=== PATIENT | female | born 1985 | race Caucasian/White ===

== ENCOUNTER 2017-11-21 05:33 | Inpatient (IN) | payer MEDICAID ==
[~2017-11-21] VITALS: Ht 165.1 cm; Wt 107.7 kg
[2017-11-21] VITALS (11 sets, daily range): BP systolic 106–148; BP diastolic 60–84; PULSE 82–100; RESP 16–20; TEMP 98.1–99.1; O2SAT 94–98
--- NOTE | 2017-11-21 06:14 | PD ---
HPI Chief Complaint: GI Complaint Time Seen by Provider: 06:04 Travel History International Travel<30 days: No Contact w/Intl Traveler<30days: No Traveled to known affect area: No History of Present Illness HPI The patient is a 32-year-old female who complains of nausea, vomiting and midline epigastric pain for 10 hours. She denies any diarrhea. She denies any alcohol recently and denies taking any aspirin or nonsteroidal anti- inflammatory medications. She had a colonoscopy recently which was normal. She does not have any local physicians, she lives in [place]. She does not have any history of pancreatitis. She states they're planning to do an upper endoscopy in [place] because of her recurrent abdominal pains. She states there is no possibility of being . Apparently, the patient had sludge in her gallbladder on previous ultrasound. This happened approximately one month ago. PFSH Past Medical History Patient Takes Glucophage: No Gastrointestinal Disorders: Yes (Colonoscopy 11/16/2017) Influenza Vaccination: No ?: Not LMP: Now Past Surgical History Section: Yes Social History Alcohol Use: No Tobacco Use: No Substance Use: No Allergies-Medications (Allergen,Severity, Reaction): Coded Allergies: Penicillins (Verified Allergy, Unknown, Rash, 11/21/17) montelukast (Verified Allergy, Unknown, Bad dreams, 11/21/17) Reported Meds & Prescriptions Reported Meds & Active Scripts Active Reported Ibuprofen 200 Mg Tab 200 Mg PO Q4H PRN Review of Systems Except as stated in HPI: all other systems reviewed are Neg Physical Exam Narrative GENERAL: The patient is alert, oriented 3 in moderate apparent distress with her midline epigastric discomfort. Her vital signs are normal. SKIN: Focused skin assessment warm/dry. HEAD: Atraumatic. Normocephalic. EYES: Pupils equal and round. No scleral icterus. No injection or drainage. ENT: No nasal bleeding or discharge. Mucous membranes pink and moist. NECK: Trachea midline. No JVD. CARDIOVASCULAR: Regular rate and rhythm. No murmur appreciated. RESPIRATORY: No accessory muscle use. Clear to auscultation. Breath sounds equal bilaterally. GASTROINTESTINAL: Abdomen soft, with tenderness to direct palpation in the midline epigastrium, nondistended. Hepatic and splenic margins not palpable. No guarding or rebound is present. MUSCULOSKELETAL: No obvious deformities. No clubbing. No cyanosis. No edema. NEUROLOGICAL: Awake and alert. No obvious cranial nerve deficits. Motor grossly within normal limits. Normal speech. PSYCHIATRIC: Appropriate mood and affect; insight and judgment normal. Data Data Last Documented VS Vital Signs Date Time Temp Pulse Resp B/P (MAP) Pulse Ox O2 Delivery O2 Flow Rate FiO2 11/21/17 07:03 16 11/21/17 07:02 97 Room Air 11/21/17 07:00 82 11/21/17 05:48 98.4 Orders Orders Beta Hcg (Quant/Titer) (11/21/17 06:16) Complete Blood Count With Diff (11/21/17 06:16) Comprehensive Metabolic Panel (11/21/17 06:16) Lipase (11/21/17 06:16) Urinalysis - C+S If Indicated (11/21/17 06:16) Iv Access Insert/Monitor (11/21/17 06:16) Ecg Monitoring (11/21/17 06:16) Oximetry (11/21/17 06:16) Ondansetron Inj (Zofran Inj) (11/21/17 06:30) Sodium Chlor 0.9% 1000 Ml Inj (Ns 1000 M (11/21/17 06:16) Sodium Chloride 0.9% Flush (Ns Flush) (11/21/17 06:30) Hydromorphone Pf Inj (Dilaudid Pf Inj) (11/21/17 06:45) Pantoprazole Inj (Protonix Inj) (11/21/17 06:45) Sodium Chlor 0.9% 1000 Ml Inj (Ns 1000 M (11/21/17 06:37) Famotidine Inj (Pepcid Inj) (11/21/17 06:45) Urine Culture (11/21/17 06:15) Ct Abd/Pel W Iv Contrast(Rout) (11/21/17 07:19) Labs Laboratory Tests Test 11/21/17 06:15 White Blood Count 10.0 TH/MM3 Red Blood Count 4.85 MIL/MM3 Hemoglobin 13.3 GM/DL Hematocrit 41.0 % Mean Corpuscular Volume 84.5 FL Mean Corpuscular Hemoglobin 27.4 PG Mean Corpuscular Hemoglobin Concent 32.4 % Red Cell Distribution Width 13.0 % Platelet Count 268 TH/MM3 Mean Platelet Volume 8.2 FL Neutrophils (%) (Auto) 87.4 % Lymphocytes (%) (Auto) 7.2 % Monocytes (%) (Auto) 4.7 % Eosinophils (%) (Auto) 0.4 % Basophils (%) (Auto) 0.3 % Neutrophils # (Auto) 8.8 TH/MM3 Lymphocytes # (Auto) 0.7 TH/MM3 Monocytes # (Auto) 0.5 TH/MM3 Eosinophils # (Auto) 0.0 TH/MM3 Basophils # (Auto) 0.0 TH/MM3 CBC Comment DIFF FINAL Differential Comment Urine Collection Type CLEAN CATCH Urine Color YELLOW Urine Turbidity MOD Urine pH 5.0 Urine Specific [place] 1.026 Urine Protein 30 mg/dL Urine Glucose (UA) NEG mg/dL Urine Ketones NEG mg/dL Urine Occult Blood LARGE Urine Nitrite NEG Urine Bilirubin MOD Urine Leukocyte Esterase NEG Urine RBC 50-99 /hpf Urine WBC 9-14 /hpf Urine Squamous Epithelial Cells 6-8 /hpf Urine Calcium Oxalate Crystals MOD /hpf Urine Amorphous Sediment FEW Urine Bacteria FEW /hpf Microscopic Urinalysis Comment CULTURE INDICATED Urine Collection Time 06:15 Blood Urea Nitrogen 11 MG/DL Creatinine 0.75 MG/DL Random Glucose 153 MG/DL Total Protein 7.7 GM/DL Albumin 3.5 GM/DL Calcium Level 8.2 MG/DL Alkaline Phosphatase 235 U/L Aspartate Amino Transf (AST/SGOT) 306 U/L Alanine Aminotransferase (ALT/SGPT) 632 U/L Total Bilirubin 2.1 MG/DL Sodium Level 137 MEQ/L Potassium Level 3.9 MEQ/L Chloride Level 104 MEQ/L Carbon Dioxide Level 26.2 MEQ/L Anion Gap 7 MEQ/L Estimat Glomerular Filtration Rate 89 ML/MIN Lipase GREATER THAN 04599 U/L Human Chorionic Gonadotropin, Quant LESS THAN 1 MIU/ML MDM Medical Decision Making Medical Screen Exam Complete: Yes Emergency Medical Condition: Yes Medical Record Reviewed: Yes Interpretation(s) The CBC shows 87% neutrophils but is otherwise normal. The complete metabolic profile shows a glucose of 153, calcium 8.2, total bilirubin of 2.1 with AST of 306, ALT of 632, alkaline phosphatase of 235 but is otherwise normal. The beta- hCG is less than 1. The lipase is greater than 30,000. The urine shows specific gravity 1.0-6, moderate turbidity with large occult blood, moderate bilirubin with 50-99 red cells and 9-14 white cells and moderate calcium oxalate crystals and culture is indicated. Differential Diagnosis Gastritis, pancreatitis, colitis, ulcer pain, dehydration, electrolyte disorder Narrative Course The blood and urine may be explained by the fact that the patient is on her period. The elevation of the liver enzymes and dramatic elevation of the lipase indicate possible gallstone pancreatitis area it could also be viral pancreatitis. We're doing a CT abdomen/pelvis at this time. The patient will be admitted to the [facility] service. It is now 0735 and the patient will have a CT abdomen/pelvis to help determine if this is a ductal obstruction problem orifices viral pancreatitis. The patient does have severe pancreatitis. She is dehydrated. It is now 736 and the patient is transferred to Dr. Hdz. Diagnosis Primary Impression: Pancreatitis due to biliary obstruction Deion Veliz MD Nov 21, 2017 06:13
[2017-11-21] MEDS ORDERED: SODIUM CHLOR 0.9% 1000 ML INJ 1,000 ML IV SCH ×2 (06:16→06:37)
[2017-11-21] MEDS ORDERED: ONDANSETRON HCL 4 MG/2 ML VIAL IVP ONE (06:30)
[2017-11-21] MEDS ORDERED: SODIUM CHLORIDE 0.9% FLUSH 10 ML FLUSH IV FLUSH PRN ×2 (06:30→09:00)
[2017-11-21 06:34] LABS: BILIRUBIN, URINE MOD (NEG); BLOOD, URINE LARGE (NEG); GLUCOSE,URINE NEG (NEG); KETONE, URINE NEG (NEG); NITRITE,URINE NEG (NEG); URINE LEUKOCYTE ESTERASE NEG (NEG)
[2017-11-21 06:36] LABS: AUTOMATED NEUTROPHIL # 8.8 TH/MM3 (1.8-7.7); BASOPHIL % 0.3 % (0.0-2.0); EOSINOPHIL % 0.4 % (0.0-4.0); HEMOGLOBIN 13.3 GM/DL (11.6-15.3); LYMPH % 7.2 % (9.0-44.0); LYMPHOCYTE # 0.7 TH/MM3 (1.0-4.8); MEAN CELL VOLUME 84.5 FL (80.0-100.0); MEAN CORPUSCULAR HEMOGLOBIN 27.4 PG (27.0-34.0); MEAN CORPUSCULAR HGB CONC 32.4 % (32.0-36.0); MEAN PLATELET VOLUME 8.2 FL (7.0-11.0); MONO % 4.7 % (0.0-8.0); MONOCYTE # 0.5 TH/MM3 (0-0.9); NEUT % 87.4 % (16.0-70.0); PLATELET COUNT 268 TH/MM3 (150-450); RED BLOOD COUNT 4.85 MIL/MM3 (4.00-5.30)
[2017-11-21 06:41] LABS: CHLORIDE 104 MEQ/L (98-107); SODIUM (NA) 137 MEQ/L (136-145)
[2017-11-21 06:45] LABS: ALBUMIN 3.5 GM/DL (3.4-5.0); BICARBONATE 26.2 MEQ/L (21.0-32.0); BLOOD UREA NITROGEN 11 MG/DL (7-18); CALCIUM 8.2 MG/DL (8.5-10.1); GLUCOSE,RANDOM 153 MG/DL (74-106); URINE COLOR YELLOW (YELLW/STRAW)
[2017-11-21] MEDS ORDERED: PANTOPRAZOLE SODIUM 40 MG VIAL IVP ONE (06:45)
[2017-11-21] MEDS ORDERED: HYDROmorphone HCL PF 2 MG/ML VIAL IVS ONE (06:45)
[2017-11-21] MEDS ORDERED: FAMOTIDINE 20 MG/2 ML VIAL IV PUSH ONE (06:45)
[2017-11-21 06:48] LABS: ALT (GPT) 632 U/L (10-53); AST (GOT) 306 U/L (15-37); CREATININE 0.75 MG/DL (0.50-1.00); GLOMERULAR FILTRATION RATE 89 ML/MIN (>89)
[2017-11-21 06:49] LABS: AMORPHOUS SEDIMENT, URINE FEW; BACTERIA, URINE FEW /hpf; CALCIUM OXALATE CRYSTALS,URINE MOD /hpf
[2017-11-21 06:50] LABS: TOTAL BILIRUBIN ADULT 2.1 MG/DL (0.2-1.0); TOTAL PROTEIN 7.7 GM/DL (6.4-8.2)
[2017-11-21 06:51] LABS: ALKALINE PHOSPHATASE 235 U/L (45-117)
[2017-11-21 06:59] LABS: LIPASE GREATER THAN 30000 U/L (73-393)
[2017-11-21] MEDS ORDERED: IBUP200T47 PO (07:34)
[2017-11-21] MEDS ORDERED: IOHEXOL 350 MG/ML 10 ML VIAL (for RAD DIAG) IVCONTRAST ONE (07:39)
--- NOTE | 2017-11-21 08:23 | RADRPT ---
EXAM DATE/TIME: 11/21/2017 07:30 [facility] COMPARISON: No previous studies available for comparison. INDICATIONS : Upper quadrant pain, with nausea and vomiting. IV CONTRAST: 95 cc Omnipaque 350 (iohexol) IV ORAL CONTRAST: No oral contrast ingested. RADIATION DOSE: 22.35 CTDIvol (mGy) MEDICAL HISTORY : None SURGICAL HISTORY : section. ENCOUNTER: Initial ACUITY: 1 day PAIN SCALE: 2/10 LOCATION: Bilateral upper quadrant TECHNIQUE: Volumetric scanning of the abdomen and pelvis was performed. Using automated exposure control and ad justment of the mA and/or kV according to patient size, radiation dose was kept as low as reasonably achievable to obtain optimal diagnostic quality images. DICOM format image data is available electro nically for review and comparison. FINDINGS: LOWER LUNGS: The visualized lower lungs are clear. LIVER: Diffuse moderate intrahepatic biliary ductal dilatation. Common duct measures 11 mm in diameter diffu sely. Multiple gallstones are seen in the gallbladder. There are also two 5 mm calcific densities in the region of the distal common duct indicating possible choledocholithiasis. No pericholecystic inf lammatory changes. No focal masses in the liver. SPLEEN: Normal size without lesion. PANCREAS: Within normal limits. KIDNEYS: Normal in size and shape. There is no mass, stone or hydronephrosis. ADRENAL GLANDS: Within normal limits. VASCULAR: There is no aortic aneurysm. BOWEL/MESENTERY: No evidence of bowel dilatation. No free air or free fluid. Appendix within normal limits. ABDOMINAL WALL: Within normal limits. RETROPERITONEUM: There is no lymphadenopathy. BLADDER: No wall thickening or mass. REPRODUCTIVE: Calcifi 3.8 cm fibroid extending superiorly off of the uterine fundus. 4.5 x 3.0 cm right adnexal cys tic mass. INGUINAL: There is no lymphadenopathy or hernia. MUSCULOSKELETAL: Within normal limits for patient age. CONCLUSION: 1. Diffuse intrahepatic and extra hepatic biliary ductal dilatation. Cholelithiasis. Calcific densiti es in the region of the distal common duct suggesting choledocholithiasis. No pericholecystic inflamm atory changes. 2. Calcified uterine fibroid. 3. 4.5 cm oval cystic area in the right adnexa likely representing an ovarian cyst. Jak Rae MD on November 21, 2017 at 8:14 Board Certified Radiologist. This report was verified electronically.
[2017-11-21] MEDS ORDERED: HYDROmorphone HCL PF 1 MG/ML VIAL IV PUSH ONE (08:30)
[2017-11-21] MEDS ORDERED: HYDROmorphone HCL PF 2 MG/ML VIAL IV PUSH ONE (08:30)
[2017-11-21] MEDS ORDERED: ONDANSETRON HCL 4 MG/2 ML VIAL IV PUSH ONE (08:45)
--- NOTE | 2017-11-21 08:56 | PD ---
Physical Exam Date Seen by Provider: Nov 21, 2017 Time Seen by Provider: 07:00 Narrative Patient initially seen by Dr. Veliz, signed out to me at 7 AM pending CAT scan. Patient has acute pancreatitis and hepatic enzyme elevations, concerning for underlying cholecystitis or other gallbladder processes. Laboratory Tests Test 11/21/17 06:15 Neutrophils (%) (Auto) 87.4 % (16.0-70.0) Lymphocytes (%) (Auto) 7.2 % (9.0-44.0) Neutrophils # (Auto) 8.8 TH/MM3 (1.8-7.7) Lymphocytes # (Auto) 0.7 TH/MM3 (1.0-4.8) Urine Turbidity MOD (CLEAR) Urine Protein 30 mg/dL (NEG-TRACE) Urine Occult Blood LARGE (NEG) Urine Bilirubin MOD (NEG) Urine RBC 50-99 /hpf (0-3) Urine WBC 9-14 /hpf (0-5) Urine Squamous Epithelial Cells 6-8 /hpf (0-5) Urine Calcium Oxalate Crystals MOD /hpf (NONE) Urine Bacteria FEW /hpf (NONE) Random Glucose 153 MG/DL (74-106) Calcium Level 8.2 MG/DL (8.5-10.1) Alkaline Phosphatase 235 U/L (45-117) Aspartate Amino Transf (AST/SGOT) 306 U/L (15-37) Alanine Aminotransferase (ALT/SGPT) 632 U/L (10-53) Total Bilirubin 2.1 MG/DL (0.2-1.0) Lipase GREATER THAN 80103 U/L Last 24 hours Impressions Abdomen/Pelvis CT 11/21/17 0719 Signed Impressions: Service Date/Time: Tuesday, November 21, 2017 07:30 - CONCLUSION: 1. Diffuse intrahepatic and extra hepatic biliary ductal dilatation. Cholelithiasis. Calcific densities in the region of the distal common duct suggesting choledocholithiasis. No pericholecystic inflammatory changes. 2. Calcified uterine fibroid. 3. 4.5 cm oval cystic area in the right adnexa likely representing an ovarian cyst. Jak Rae MD CAT scan does not show any signs of acute cholecystitis but does show biliary outflow obstruction. Case was discussed with Dr. Mckeon for admission. Case was then discussed with Dr. Roman of GI and she would like the patient to be transferred to the main hospital, patient will need an ERCP which needs to be done there. Planning to admit to the [facility]. Data Data Last Documented VS Vital Signs Date Time Temp Pulse Resp B/P (MAP) Pulse Ox O2 Delivery O2 Flow Rate FiO2 11/21/17 08:09 100 18 106/60 (75) 98 Room Air 11/21/17 05:48 98.4 Orders Orders Beta Hcg (Quant/Titer) (11/21/17 06:16) Complete Blood Count With Diff (11/21/17 06:16) Comprehensive Metabolic Panel (11/21/17 06:16) Lipase (11/21/17 06:16) Urinalysis - C+S If Indicated (11/21/17 06:16) Iv Access Insert/Monitor (11/21/17 06:16) Ecg Monitoring (11/21/17 06:16) Oximetry (11/21/17 06:16) Ondansetron Inj (Zofran Inj) (11/21/17 06:30) Sodium Chlor 0.9% 1000 Ml Inj (Ns 1000 M (11/21/17 06:16) Sodium Chloride 0.9% Flush (Ns Flush) (11/21/17 06:30) Hydromorphone Pf Inj (Dilaudid Pf Inj) (11/21/17 06:45) Pantoprazole Inj (Protonix Inj) (11/21/17 06:45) Sodium Chlor 0.9% 1000 Ml Inj (Ns 1000 M (11/21/17 06:37) Famotidine Inj (Pepcid Inj) (11/21/17 06:45) Urine Culture (11/21/17 06:15) Ct Abd/Pel W Iv Contrast(Rout) (11/21/17 07:19) Iohexol 350 Inj (Omnipaque 350 Inj) (11/21/17 07:39) Hydromorphone Pf Inj (Dilaudid Pf Inj) (11/21/17 08:30) Hydromorphone Pf Inj (Dilaudid Pf Inj) (11/21/17 08:30) Ondansetron Inj (Zofran Inj) (11/21/17 08:45) Admit Order (Ed Use Only) (11/21/17 08:53) Labs Laboratory Tests Test 1/14/18 06:15 White Blood Count 10.0 TH/MM3 Red Blood Count 4.85 MIL/MM3 Hemoglobin 13.3 GM/DL Hematocrit 41.0 % Mean Corpuscular Volume 84.5 FL Mean Corpuscular Hemoglobin 27.4 PG Mean Corpuscular Hemoglobin Concent 32.4 % Red Cell Distribution Width 13.0 % Platelet Count 268 TH/MM3 Mean Platelet Volume 8.2 FL Neutrophils (%) (Auto) 87.4 % Lymphocytes (%) (Auto) 7.2 % Monocytes (%) (Auto) 4.7 % Eosinophils (%) (Auto) 0.4 % Basophils (%) (Auto) 0.3 % Neutrophils # (Auto) 8.8 TH/MM3 Lymphocytes # (Auto) 0.7 TH/MM3 Monocytes # (Auto) 0.5 TH/MM3 Eosinophils # (Auto) 0.0 TH/MM3 Basophils # (Auto) 0.0 TH/MM3 CBC Comment DIFF FINAL Differential Comment Urine Collection Type CLEAN CATCH Urine Color YELLOW Urine Turbidity MOD Urine pH 5.0 Urine Specific [place] 1.026 Urine Protein 30 mg/dL Urine Glucose (UA) NEG mg/dL Urine Ketones NEG mg/dL Urine Occult Blood LARGE Urine Nitrite NEG Urine Bilirubin MOD Urine Leukocyte Esterase NEG Urine RBC 50-99 /hpf Urine WBC 9-14 /hpf Urine Squamous Epithelial Cells 6-8 /hpf Urine Calcium Oxalate Crystals MOD /hpf Urine Amorphous Sediment FEW Urine Bacteria FEW /hpf Microscopic Urinalysis Comment CULTURE INDICATED Urine Collection Time 06:15 Blood Urea Nitrogen 11 MG/DL Creatinine 0.75 MG/DL Random Glucose 153 MG/DL Total Protein 7.7 GM/DL Albumin 3.5 GM/DL Calcium Level 8.2 MG/DL Alkaline Phosphatase 235 U/L Aspartate Amino Transf (AST/SGOT) 306 U/L Alanine Aminotransferase (ALT/SGPT) 632 U/L Total Bilirubin 2.1 MG/DL Sodium Level 137 MEQ/L Potassium Level 3.9 MEQ/L Chloride Level 104 MEQ/L Carbon Dioxide Level 26.2 MEQ/L Anion Gap 7 MEQ/L Estimat Glomerular Filtration Rate 89 ML/MIN Lipase GREATER THAN 62930 U/L Human Chorionic Gonadotropin, Quant LESS THAN 1 MIU/ML MDM Medical Record Reviewed: Yes Supervised Visit with ALEN: No Diagnosis Primary Impression: Pancreatitis due to biliary obstruction Admitting Information Admitting Physician Requests: Admit Dieudonne Ley MD Nov 21, 2017 08:56
[2017-11-21] MEDS ORDERED: LACTATED RINGER'S 1000 ML INJ 1,000 ML IV SCH (08:58)
[2017-11-21] MEDS ORDERED: DOCUSATE SODIUM 50 MG/SENNA 8.6 MG TAB PO PRN (09:00)
[2017-11-21] MEDS: SODIUM CHLORIDE 0.9% FLUSH 10 ML FLUSH IV FLUSH SCH ×2 (09:00→21:00)
[2017-11-21] MEDS ORDERED: MORPHINE SULFATE 2 MG/ML INJ IV PUSH PRN ×2 (09:15→13:15)
[2017-11-21] MEDS ORDERED: PROPOFOL 200 MG/20 ML AMP IV ONE (12:00)
[2017-11-21] MEDS ORDERED: LIDOCAINE HCL 1% PF 5 ML SYRINGE OTHER ONE (12:00)
[2017-11-21] MEDS ORDERED: SUCCINYLCHOLINE CHLORIDE 200 MG/10 ML VIAL IV ONE (12:00)
[2017-11-21] MEDS ORDERED: KETOROLAC TROMETHAMINE 60 MG/2 ML (IM) VIAL IM PRN (12:00)
--- NOTE | 2017-11-21 12:11 | HHI.HP ---
[facility] Primary [facility] Physician No Primary Care Physician Admission Diagnosis Choledocholithiasis/acute pancreatitis Diagnoses: Chief Complaint: abdominal pain Travel History International Travel<30 Days: No Contact w/Intl Traveler <30 Da: No Traveled to Known Affected Are: No History of Present Illness Patient is a 32-year-old female with minimal past history who has about 6 months of intermittent abdominal pain and associated nausea. She denies alcohol. She does have a previous diagnosis of biliary sludge and had been in the process of getting this evaluated in [place]. She was recommended for cholecystectomy but declined this in the couple of his hospital for nausea and vomiting with abdominal discomfort. The pain in her abdomen is severe and improved with minimal no improvement with Dilaudid or morphine. The patient has elevated LFTs and on imaging there is dilation her biliary ducts of likely obstruction. Patient will need to be admitted to the hospital for pain control and for definitive treatment of her biliary disease. Review of Systems Constitutional: DENIES: Diaphoretic episodes, Fatigue, Fever, Weight gain, Weight loss, Chills, Dizziness, Change in appetite, Night Sweats Endocrine: DENIES: Abnorml menstrual pattern, Heat/cold intolerance, Polydipsia , Polyuria, Polyphagia Eyes: DENIES: Blurred vision, Diplopia, Eye inflammation, Eye pain, Vision loss , Photosensitivity, Double Vision Ears, nose, mouth, throat: DENIES: Tinnitus, Hearing loss, Vertigo, Nasal discharge, Oral lesions, Throat pain, Hoarseness, Ear Pain, Running Nose, Epistaxis, Sinus Pain, Toothache, Odynophagia Respiratory: DENIES: Apneas, Cough, Snoring, Wheezing, Hemoptysis, Sputum production, Shortness of breath Cardiovascular: DENIES: Chest pain, Palpitations, Syncope, Dyspnea on Exertion , PND, Lower Extremity Edema, Orthopnea, Claudication Gastrointestinal: COMPLAINS OF: Abdominal pain, Nausea, Vomiting, DENIES: Black stools, Bloody stools, Constipation, Diarrhea, Difficulty Swallowing, Anorexia Genitourinary: DENIES: Abnormal vaginal bleeding, Dysmenorrhea, Dyspareunia, Sexual dysfunction, Urinary frequency, Urinary incontinence, Urgency, Hematuria , Dysuria, Nocturia, Vaginal discharge Musculoskeletal: DENIES: Joint pain, Muscle aches, Stiffness, Joint Swelling, Back pain, Neck pain Integumentary: DENIES: Abnormal pigmentation, Pruritus, Rash, Nail changes, Breast masses, Breast skin changes, Nipple discharge Hematologic/lymphatic: DENIES: Bruising, Lymphadenopathy Immunologic/allergic: DENIES: Eczema, Urticaria Neurologic: DENIES: Abnormal gait, Headache, Localized weakness, Paresthesias, Seizures, Speech Problems, Tremor, Poor Balance Psychiatric: DENIES: Anxiety, Confusion, Mood changes, Depression, Hallucinations, Agitation, Suicidal Ideation, Homicidal Ideation, Delusions Except as stated in HPI: all other systems reviewed are Neg Past Family Social History Past Medical History Denies Past Surgical History Reported Medications Reviewed in the EMR, only ibuprofen [id number] Allergies: Coded Allergies: Penicillins (Verified Allergy, Unknown, Rash, 11/21/17) montelukast (Verified Allergy, Unknown, Bad dreams, 11/21/17) Active Ordered Medications Reviewed in the EMR Family History Hypertension Social History Tobacco or alcohol dependency Physical Exam Vital Signs Vital Signs Date Time Temp Pulse Resp B/P (MAP) Pulse Ox O2 Delivery O2 Flow Rate FiO2 11/21/17 10:54 98.1 88 20 148/82 (104) 98 Room Air 11/21/17 09:03 18 11/21/17 08:09 100 18 106/60 (75) 98 Room Air 11/21/17 07:03 16 11/21/17 07:02 97 Room Air 11/21/17 07:00 82 16 119/79 (92) 98 Room Air 11/21/17 05:58 20 11/21/17 05:48 98.4 97 20 139/62 (87) 97 11/21/17 05:43 98.4 97 20 139/62 (87) 97 Physical Exam GENERAL: This is a well-nourished, well-developed patient, in no apparent distress. SKIN: No rashes, ecchymoses or lesions. Cool and dry. HEAD: Atraumatic. Normocephalic. No temporal or scalp tenderness. EYES: Pupils equal round and reactive. Extraocular motions intact. No scleral icterus. No injection or drainage. ENT: Nose without bleeding, purulent drainage or septal hematoma. Throat without erythema, tonsillar hypertrophy or exudate. Uvula midline. Airway patent. NECK: Trachea midline. No JVD or lymphadenopathy. Supple, nontender, no meningeal signs. CARDIOVASCULAR: Regular rate and rhythm without murmurs, gallops, or rubs. RESPIRATORY: Clear to auscultation. Breath sounds equal bilaterally. No wheezes , rales, or rhonchi. GASTROINTESTINAL: dry mucous membrane. Abdomen soft, non-tender, nondistended. No hepato-splenomegaly, or palpable masses. No guarding. MUSCULOSKELETAL: Extremities without clubbing, cyanosis, or edema. No joint tenderness, effusion, or edema noted. No calf tenderness. Negative Homans sign bilaterally. NEUROLOGICAL: Awake and alert. Cranial nerves II through XII intact. Motor and sensory grossly within normal limits. Five out of 5 muscle strength in all muscle groups. Normal speech. Laboratory Laboratory Tests Test 11/21/17 06:15 White Blood Count 10.0 Red Blood Count 4.85 Hemoglobin 13.3 Hematocrit 41.0 Mean Corpuscular Volume 84.5 Mean Corpuscular Hemoglobin 27.4 Mean Corpuscular Hemoglobin Concent 32.4 Red Cell Distribution Width 13.0 Platelet Count 268 Mean Platelet Volume 8.2 Neutrophils (%) (Auto) 87.4 Lymphocytes (%) (Auto) 7.2 Monocytes (%) (Auto) 4.7 Eosinophils (%) (Auto) 0.4 Basophils (%) (Auto) 0.3 Neutrophils # (Auto) 8.8 Lymphocytes # (Auto) 0.7 Monocytes # (Auto) 0.5 Eosinophils # (Auto) 0.0 Basophils # (Auto) 0.0 CBC Comment DIFF FINAL Differential Comment Urine Collection Type CLEAN CATCH Urine Color YELLOW Urine Turbidity MOD Urine pH 5.0 Urine Specific [place] 1.026 Urine Protein 30 Urine Glucose (UA) NEG Urine Ketones NEG Urine Occult Blood LARGE Urine Nitrite NEG Urine Bilirubin MOD Urine Leukocyte Esterase NEG Urine RBC 50-99 Urine WBC 9-14 Urine Squamous Epithelial Cells 6-8 Urine Calcium Oxalate Crystals MOD Urine Amorphous Sediment FEW Urine Bacteria FEW Microscopic Urinalysis Comment CULTURE INDICATED Urine Collection Time 06:15 Blood Urea Nitrogen 11 Creatinine 0.75 Random Glucose 153 Total Protein 7.7 Albumin 3.5 Calcium Level 8.2 Alkaline Phosphatase 235 Aspartate Amino Transf (AST/SGOT) 306 Alanine Aminotransferase (ALT/SGPT) 632 Total Bilirubin 2.1 Sodium Level 137 Potassium Level 3.9 Chloride Level 104 Carbon Dioxide Level 26.2 Anion Gap 7 Estimat Glomerular Filtration Rate 89 Lipase GREATER THAN 57365 Human Chorionic Gonadotropin, Quant LESS THAN 1 Date/Time Source Procedure Growth Status 11/21/17 06:15 Urine Clean Catch Urine Culture Pending Received Result Diagram: 11/21/17 0615 11/21/17 0615 Imaging Last Impressions Abdomen/Pelvis CT 11/21/17 0719 Signed Impressions: Service Date/Time: Tuesday, November 21, 2017 07:30 - CONCLUSION: 1. Diffuse intrahepatic and extra hepatic biliary ductal dilatation. Cholelithiasis. Calcific densities in the region of the distal common duct suggesting choledocholithiasis. No pericholecystic inflammatory changes. 2. Calcified uterine fibroid. 3. 4.5 cm oval cystic area in the right adnexa likely representing an ovarian cyst. Jak Rae MD Septic Shock Reassessment Septic shock perfusion: reassessment completed Caprini VTE Risk Assessment Caprini VTE Risk Assessment: Mod/High Risk (score >= 2) Caprini Risk Assessment Model Point Value = 1 Point Value = 2 Point Value = 3 Point Value = 5 Age 41-60 Minor surgery BMI > 25 kg/m2 Swollen legs Varicose veins or History of unexplained or recurrent spontaneous Oral contraceptives or hormone replacement Sepsis (< 1 month) Serious lung disease, including pneumonia (< 1 month) Abnormal pulmonary function Acute myocardial infarction Congestive heart failure (< 1 month) History of inflammatory bowel disease Medical patient at bed rest Age 61-74 Arthroscopic surgery Major open surgery (> 45 min) Laparoscopic surgery (> 45 min) Malignancy Confined to bed (> 72 hours) Immobilizing plaster cast Central venous access Age >= 75 History of VTE Family history of VTE Factor V Leiden Prothrombin [id number] Lupus anticoagulant Anticardiolipin antibodies Elevated serum homocysteine Heparin-induced thrombocytopenia Other congenital or acquired thrombophilia Stroke (< 1 month) Elective arthroplasty Hip, pelvis, or leg fracture Acute spinal cord injury (< 1 month) Prophylaxis Regimen Total Risk Factor Score Risk Level Prophylaxis Regimen 0-1 Low Early ambulation 2 Moderate Order ONE of the following: *Sequential Compression Device (SCD) *Heparin 5000 units SQ BID 3-4 Higher Order ONE of the following medications: *Heparin 5000 units SQ TID *Enoxaparin/Lovenox 40 mg SQ daily (WT < 150 kg, CrCl > 30 mL/min) *Enoxaparin/Lovenox 30 mg SQ daily (WT < 150 kg, CrCl > 10-29 mL/min) *Enoxaparin/Lovenox 30 mg SQ BID (WT < 150 kg, CrCl > 30 mL/min) AND/OR *Sequential Compression Device (SCD) 5 or more Highest Order ONE of the following medications: *Heparin 5000 units SQ TID (Preferred with Epidurals) *Enoxaparin/Lovenox 40 mg SQ daily (WT < 150 kg, CrCl > 30 mL/min) *Enoxaparin/Lovenox 30 mg SQ daily (WT < 150 kg, CrCl > 10-29 mL/min) *Enoxaparin/Lovenox 30 mg SQ BID (WT < 150 kg, CrCl > 30 mL/min) AND *Sequential Compression Device (SCD) Assessment and Plan Problem List: (1) Pancreatitis due to biliary obstruction ICD Code: K85.90 - Acute pancreatitis without necrosis or infection, unspecified; K83.1 - Obstruction of bile duct Status: Acute Plan: Patient will need further evaluation due to a history of gallstones in the past. At least since May this has been a problem and it appears to be escalating to the point of intervention required. Patient will see Gen. surgery as well as gastroenterology for possible ERCP and laparoscopic cholecystectomy if possible Physician Certification 2 Midnight Certification Type: Admission for Inpatient Services Order for Inpatient Services The services are ordered in accordance with Medicare regulations or non- Medicare payer requirements, as applicable. In the case of services not specified as inpatient-only, they are appropriately provided as inpatient services in accordance with the 2-midnight benchmark. Estimated LOS (days): 3 3 days is the estimated time the patient will need to remain in the hospital, assuming treatment plan goals are met and no additional complications. Post-Hospital Plan: Home Verenice Mckeon MD Nov 21, 2017 12:11
[2017-11-21] MEDS: ONDANSETRON HCL 4 MG/2 ML VIAL IV PUSH PRN ×2 (15:08→21:13)
--- NOTE | 2017-11-21 15:59 | PD.CONS ---
HPI History of Present Illness This is a 32 year old F with no significant medical problems. Pt presented to [facility] emergency department today with complaints of abdominal pain and nausea, symptoms have been intermittent for the past six months, constant since 9pm last night. Recently evaluated in [place] last week where she lives, currently here on vacation. Last week she had imaging done to evaluate her gallbladder and was told it was normal. However, she does report history of biliary sludge and elected out of cholecystectomy in the past. Also reports approx 10 pound weight loss but states she has been trying to eat less due to chronic abdominal pain. Also has issues with chronic constipation, was prescribed a medication for this by GI alst week but never had a chance to fill it. Pt also had a colonoscopy three days ago, states normal exam. Has never had EGD. LFTs in ER are as follows: AST-306 ALT-632 Alk phos-235 T bili-2.1 Lipase- greater than [address]. CT abdomen and pelvis W IV contrast (11/21) --> Diffuse intrahepatic and extra hepatic biliary ductal dialtion. Cholelithiasis. Calcified densities in the region of the distal common duct suggesting choledocholithiasis. No pericholecystic inflammatory changes. Calcified uterine fibroid. 4.5cm oval cystic area in the right adnexa likely representing an ovarian cyst. Pt denies ETOH, smoking, illicit drug use, NSAID use, any new medications. Denies history of abdominal surgeries. PFSH Past Medical History Denies Past Surgical History Coded Allergies: Penicillins (Verified Allergy, Unknown, Rash, 11/21/17) montelukast (Verified Allergy, Unknown, Bad dreams, 11/21/17) Family History Hypertension Social History Denies ETOH Denies smoking Denies illicit drug use Review of Systems Gastrointestinal: COMPLAINS OF: Abdominal pain, Constipation, Nausea, Vomiting , DENIES: Black stools, Bloody stools, Diarrhea, Difficulty Swallowing, Odynophagia, Swelling of Abdomen, Heartburn, Hematemesis GI Exam Vitals I&O Vital Signs Date Time Temp Pulse Resp B/P (MAP) Pulse Ox O2 Delivery O2 Flow Rate FiO2 11/21/17 14:11 103 18 133/75 (94) 97 11/21/17 12:16 98 18 135/84 (101) 98 Room Air 11/21/17 10:54 98.1 88 20 148/82 (104) 98 Room Air 11/21/17 09:03 18 11/21/17 08:09 100 18 106/60 (75) 98 Room Air 11/21/17 07:03 16 11/21/17 07:02 97 Room Air 11/21/17 07:00 82 16 119/79 (92) 98 Room Air 11/21/17 05:58 20 11/21/17 05:48 98.4 97 20 139/62 (87) 97 11/21/17 05:43 98.4 97 20 139/62 (87) 97 I/O 11/20/17 11/20/17 11/20/17 11/21/17 11/21/17 11/21/17 07:00 15:00 23:00 07:00 15:00 23:00 Intake Total 2000 ml Balance 2000 ml Intake IV Total 2000 ml # Voids 1 Imaging Last Impressions Abdomen/Pelvis CT 11/21/17 0719 Signed Impressions: Service Date/Time: Tuesday, November 21, 2017 07:30 - CONCLUSION: 1. Diffuse intrahepatic and extra hepatic biliary ductal dilatation. Cholelithiasis. Calcific densities in the region of the distal common duct suggesting choledocholithiasis. No pericholecystic inflammatory changes. 2. Calcified uterine fibroid. 3. 4.5 cm oval cystic area in the right adnexa likely representing an ovarian cyst. Jak Rae MD Laboratory Test 11/21/17 06:15 White Blood Count 10.0 TH/MM3 Red Blood Count 4.85 MIL/MM3 Hemoglobin 13.3 GM/DL Hematocrit 41.0 % Mean Corpuscular Volume 84.5 FL Mean Corpuscular Hemoglobin 27.4 PG Mean Corpuscular Hemoglobin Concent 32.4 % Red Cell Distribution Width 13.0 % Platelet Count 268 TH/MM3 Mean Platelet Volume 8.2 FL Neutrophils (%) (Auto) 87.4 % Lymphocytes (%) (Auto) 7.2 % Monocytes (%) (Auto) 4.7 % Eosinophils (%) (Auto) 0.4 % Basophils (%) (Auto) 0.3 % Neutrophils # (Auto) 8.8 TH/MM3 Lymphocytes # (Auto) 0.7 TH/MM3 Monocytes # (Auto) 0.5 TH/MM3 Eosinophils # (Auto) 0.0 TH/MM3 Basophils # (Auto) 0.0 TH/MM3 CBC Comment DIFF FINAL Differential Comment Urine Collection Type CLEAN CATCH Urine Color YELLOW Urine Turbidity MOD Urine pH 5.0 Urine Specific [place] 1.026 Urine Protein 30 mg/dL Urine Glucose (UA) NEG mg/dL Urine Ketones NEG mg/dL Urine Occult Blood LARGE Urine Nitrite NEG Urine Bilirubin MOD Urine Leukocyte Esterase NEG Urine RBC 50-99 /hpf Urine WBC 9-14 /hpf Urine Squamous Epithelial Cells 6-8 /hpf Urine Calcium Oxalate Crystals MOD /hpf Urine Amorphous Sediment FEW Urine Bacteria FEW /hpf Microscopic Urinalysis Comment CULTURE INDICATED Urine Collection Time 06:15 Blood Urea Nitrogen 11 MG/DL Creatinine 0.75 MG/DL Random Glucose 153 MG/DL Total Protein 7.7 GM/DL Albumin 3.5 GM/DL Calcium Level 8.2 MG/DL Alkaline Phosphatase 235 U/L Aspartate Amino Transf (AST/SGOT) 306 U/L Alanine Aminotransferase (ALT/SGPT) 632 U/L Total Bilirubin 2.1 MG/DL Sodium Level 137 MEQ/L Potassium Level 3.9 MEQ/L Chloride Level 104 MEQ/L Carbon Dioxide Level 26.2 MEQ/L Anion Gap 7 MEQ/L Estimat Glomerular Filtration Rate 89 ML/MIN Lipase GREATER THAN 53315 U/L Human Chorionic Gonadotropin, Quant LESS THAN 1 MIU/ML Date/Time Source Procedure Growth Status 11/21/17 06:15 Urine Clean Catch Urine Culture Pending Received Physical Examination HEENT: Normocephalic; atraumatic CHEST: Even/unlabored CARDIAC: RRR ABDOMEN: Distended, semi-firm, diffuse TTP, bowel sounds active EXTREMITIES: No clubbing, cyanosis, or edema. SKIN: Diaphoretic MACHINE BOSS: No focal deficits; alert and oriented times three. Assessment and Plan Plan Assessment: - Choledocholithiasis- symptoms of abdominal pain and vomiting intermittent for past six months- history of gallbladder sludge, decided against cholecystectomy in the past. Now has been vomiting and having abdominal pain since last night at 9pm. Labs consistent AST-306 ALT-632 Alk phos-235 T bili-2.1 Lipase- greater than [address]. CT abdomen and pelvis W IV contrast (11/21) --> Diffuse intrahepatic and extra hepatic biliary ductal dilation. Cholelithiasis. Calcified densities in the region of the distal common duct suggesting choledocholithiasis. No pericholecystic inflammatory changes. Calcified uterine fibroid. 4.5cm oval cystic area in the right adnexa likely representing an ovarian cyst. Pt denies ETOH, smoking, illicit drug use, NSAID use, any new medications. Plan: - ERCP today - Obtain consents - Keep NPO - Monitor labs - Levaquin - PPI - Nausea medication - Pain control - Supportive care - Further recommendations to follow based on results of above Pt has been seen and examined by myself and Dr. William and this note is written on his behalf Margret Gupta Nov 21, 2017 15:59
[2017-11-21] MEDS: LACTATED RINGER'S 1000 ML INJ 1,000 ML IV SCH ×2 (16:00→20:54)
[2017-11-21] MEDS ORDERED: PROCHLORPERAZINE INJ 10 MG/2 ML VIAL IV PUSH PRN (16:00)
[2017-11-21] MEDS: LEVOFLOXACIN 500 MG PREMIX INJ 100 ML IV SCH (17:38)
[2017-11-21] MEDS: PANTOPRAZOLE SODIUM 40 MG VIAL IV PUSH SCH (17:38)
[2017-11-21 18:06] LABS: AUTOMATED NEUTROPHIL # 12.1 TH/MM3 (1.8-7.7); BASOPHIL % 0.1 % (0.0-2.0); HEMATOCRIT 37.7 % (35.0-46.0); HEMOGLOBIN 12.9 GM/DL (11.6-15.3); LYMPH % 4.5 % (9.0-44.0); LYMPHOCYTE # 0.6 TH/MM3 (1.0-4.8); MEAN CORPUSCULAR HGB CONC 34.1 % (32.0-36.0); MEAN PLATELET VOLUME 8.1 FL (7.0-11.0); MONO % 3.7 % (0.0-8.0); MONOCYTE # 0.5 TH/MM3 (0-0.9); NEUT % 91.7 % (16.0-70.0); PLATELET COUNT 282 TH/MM3 (150-450); RED BLOOD COUNT 4.44 MIL/MM3 (4.00-5.30); RED CELL DISTRIBUTION WIDTH 13.3 % (11.6-17.2); WHITE BLOOD COUNT 13.2 TH/MM3 (4.0-11.0)
[2017-11-21 18:23] LABS: ALKALINE PHOSPHATASE 219 U/L (45-117); LIPASE 13699 U/L (73-393); TOTAL BILIRUBIN ADULT 1.8 MG/DL (0.2-1.0); TOTAL PROTEIN 7.3 GM/DL (6.4-8.2)
[2017-11-21 18:27] LABS: ALBUMIN 3.3 GM/DL (3.4-5.0); ALT (GPT) 524 U/L (10-53); AST (GOT) 217 U/L (15-37); BLOOD UREA NITROGEN 10 MG/DL (7-18); CALCIUM 8.1 MG/DL (8.5-10.1); CHLORIDE 107 MEQ/L (98-107); CREATININE 0.76 MG/DL (0.50-1.00); GLOMERULAR FILTRATION RATE 88 ML/MIN (>89); GLUCOSE,RANDOM 122 MG/DL (74-106); SODIUM (NA) 139 MEQ/L (136-145)
--- NOTE | 2017-11-21 18:51 | RADRPT ---
EXAM DATE/TIME: 11/21/2017 18:40 [facility] COMPARISON: No previous studies available for comparison. INDICATIONS : Obstruction. FLUORO TIME: 1.25 minutes IMAGE COUNT: 1 CONTRAST: Instilled by Ordering Physician MEDICAL HISTORY : None. SURGICAL HISTORY : None. ENCOUNTER: Initial ACUITY: 1 day PAIN SCORE: Non-responsive. LOCATION: Abdomen. FINDINGS: A single image is submitted showing a catheter in the common bile duct. There is at least one filling defect in the distal duct with a reverse meniscus sign. The duct is slightly distended. CONCLUSION: Filling defects in the distal common bile duct. Lázaro Stoddard MD on November 21, 2017 at 18:48 Board Certified Radiologist. This report was verified electronically.
[2017-11-21] MEDS ORDERED: DO NOT ADM ANY ANTICOAGULANT DRUGS PRN (19:00)
--- NOTE | 2017-11-21 19:06 | PD.PROCEDR ---
GI Procedure PROCEDURE PERFORMED ERCP, sphincterotomy, stones removal by balloon INDICATION FOR PROCEDURE Pancreatitis, common bile duct stone on CT scan PROCEDURE: The procedure, risks and benefits were discussed with Ms. Harding and informed consent was obtained. Anesthesia sedated her with Diprivan. She was placed in the left lateral decubitus position. ERCP: Patient was placed in a prone position. The Pentax videoscope was introduced through the oropharynx and advanced to the second portion of the duodenum where the ampula was identified. There was impacted stone at the ampulla, cannulation was performed without any difficulty, cholangiogram showed multiple filling defects in the common bile duct, sphincterotomy was performed, sweeping the duct with 11.5 and 15 mm balloon retrieved 3 stones and some sludge, and of case cholangiogram included balloon was negative for any filling defect with good flow of bile from the common bile duct and the ampulla FINDINGS: Multiple stones removed as above ESTIMATED BLOOD LOSS: None SPECIMENS REMOVED: None COMPLICATIONS: None IMPRESSION: Acute pancreatitis secondary to common bile duct stones, 3 stones were removed as above PLAN: Nothing by mouth until the morning Repeat liver function test and lipase Pain management Yoav William MD Nov 21, 2017 19:06
[2017-11-21] MEDS ORDERED: MIDAZOLAM HCL 2 MG/2 ML VIAL ONE (19:37)
[2017-11-22] VITALS (7 sets, daily range): BP systolic 95–124; BP diastolic 66–75; PULSE 87–109; RESP 16–22; TEMP 98.4–100.1; O2SAT 94–100
[2017-11-22] MEDS: KETOROLAC TROMETHAMINE 30 MG/ML (IVP) VIAL IV PUSH PRN ×3 (01:33→14:19)
[2017-11-22] MEDS: LACTATED RINGER'S 1000 ML INJ 1,000 ML IV SCH ×3 (04:22→20:30)
[2017-11-22] MEDS: PANTOPRAZOLE SODIUM 40 MG VIAL IV PUSH SCH ×2 (04:38→16:10)
[2017-11-22 09:38] LABS: ALBUMIN 2.9 GM/DL (3.4-5.0); AST (GOT) 113 U/L (15-37); BICARBONATE 23.7 MEQ/L (21.0-32.0); BLOOD UREA NITROGEN 10 MG/DL (7-18); CALCIUM 8.6 MG/DL (8.5-10.1); CHLORIDE 107 MEQ/L (98-107); CREATININE 0.56 MG/DL (0.50-1.00); GLUCOSE,RANDOM 92 MG/DL (74-106); SODIUM (NA) 138 MEQ/L (136-145)
[2017-11-22 09:43] LABS: ALKALINE PHOSPHATASE 181 U/L (45-117); ALT (GPT) 364 U/L (10-53); LIPASE 6223 U/L (73-393); TOTAL PROTEIN 6.2 GM/DL (6.4-8.2)
[2017-11-22 10:41] LABS: DIRECT BILIRUBIN ADULT 0.4 MG/DL (0.0-0.2)
[2017-11-22 10:42] LABS: TOTAL BILIRUBIN ADULT 0.8 MG/DL (0.2-1.0)
--- NOTE | 2017-11-22 10:56 | HHI.PR ---
Subjective Remarks Follow-up acute pancreatitis with choledocholithiasis 11/22/17-patient seen and examined, still complains of abdominal and back pain. Currently nothing by mouth Objective Vitals Vital Signs Date Time Temp Pulse Resp B/P (MAP) Pulse Ox O2 Delivery O2 Flow Rate FiO2 11/22/17 04:00 Room Air 11/22/17 04:00 98.5 92 16 120/73 (89) 96 11/21/17 23:40 99.1 88 16 113/66 (82) 94 11/21/17 19:29 99.0 98 20 120/78 (92) 98 11/21/17 19:12 99.1 97 18 122/74 (90) 94 11/21/17 19:00 96 17 124/76 (92) 95 Room Air 11/21/17 18:50 100.0 122 17 130/81 (97) 99 Simple Mask 10 11/21/17 16:00 98.5 90 18 107/74 (85) 97 11/21/17 14:11 103 18 133/75 (94) 97 11/21/17 12:16 98 18 135/84 (101) 98 Room Air 11/21/17 10:54 98.1 88 20 148/82 (104) 98 Room Air I/O 11/21/17 11/21/17 11/21/17 11/22/17 11/22/17 11/22/17 07:00 15:00 23:00 07:00 15:00 23:00 Intake Total 2000 ml 300 ml 1800 ml Balance 2000 ml 300 ml 1800 ml Intake Oral 0 ml IV Total 2000 ml 1800 ml Other 300 ml # Voids 1 2 # Bowel Movements 0 Result Diagram: 11/21/17 1755 11/22/17 0833 Imaging Last Impressions Abdomen/Pelvis CT 11/21/17 0719 Signed Impressions: Service Date/Time: Tuesday, November 21, 2017 07:30 - CONCLUSION: 1. Diffuse intrahepatic and extra hepatic biliary ductal dilatation. Cholelithiasis. Calcific densities in the region of the distal common duct suggesting choledocholithiasis. No pericholecystic inflammatory changes. 2. Calcified uterine fibroid. 3. 4.5 cm oval cystic area in the right adnexa likely representing an ovarian cyst. Jak Rae MD GI Procedure 11/21/17 0000 Signed Impressions: Service Date/Time: Tuesday, November 21, 2017 18:40 - CONCLUSION: Filling defects in the distal common bile duct. Lázaro Stoddard MD Objective Remarks GENERAL: NAD SKIN: Warm and dry. HEAD: Normocephalic. EYES: No scleral icterus. No injection or drainage. NECK: Supple, trachea midline. No JVD or lymphadenopathy. CARDIOVASCULAR: Regular rate and rhythm without murmurs, gallops, or rubs. RESPIRATORY: Breath sounds equal bilaterally. No accessory muscle use. GASTROINTESTINAL: Abdomen soft, mildly tender, nondistended. +BS MUSCULOSKELETAL: No cyanosis, or edema. BACK: Nontender without obvious deformity. No CVA tenderness. Procedures ERCP, sphincterotomy, stones removal by balloon 11/21/17 A/P Problem List: (1) Pancreatitis due to biliary obstruction ICD Code: K85.90 - Acute pancreatitis without necrosis or infection, unspecified; K83.1 - Obstruction of bile duct Status: Acute Assessment and Plan 32-year-old female with Pancreatitis due to biliary obstruction Choledocholithiasis s/p ERCP, sphincterotomy, stones removal by balloon 11/21/17 by gastroenterology Lipase trending down, and continue to monitor LFTs and lipase level Currently nothing by mouth, continue with IV Levaquin, IV fluid resuscitation and parenteral pain management Patient will eventually need prophylactic cholecystectomy outpatient DVT prophylaxis: Bilateral SCDs GI prophylaxis: PPI Kristofer Richard MD Nov 22, 2017 10:56
[2017-11-22] MEDS ORDERED: LIDOCAINE HCL 1% PF 5 ML SYRINGE OTHER ONE (12:00)
[2017-11-22] MEDS ORDERED: PROPOFOL 200 MG/20 ML AMP IV ONE (12:00)
[2017-11-22] MEDS ORDERED: ROCURONIUM INJ 50 MG/5 ML SYRINGE IV PUSH ONE (12:00)
[2017-11-22] MEDS ORDERED: SUCCINYLCHOLINE CHLORIDE 200 MG/10 ML VIAL IV ONE (12:00)
[2017-11-22] MEDS ORDERED: NEOSTIGMINE 5 MG/5 ML SYRINGE IV PUSH ONE (12:00)
[2017-11-22] MEDS ORDERED: GLYCOPYRROLATE 1 MG/5 ML SYRINGE IV PUSH ONE (12:00)
[2017-11-22] MEDS ORDERED: ONDANSETRON HCL 4 MG/2 ML VIAL IV PUSH ONE (12:00)
[2017-11-22] MEDS ORDERED: DEXAMETHASONE SOD PHOS 4 MG/ML VIAL IV ONE (12:00)
--- NOTE | 2017-11-22 14:48 | HHI.GIFU ---
Subjective Remarks Pt resting in bed, reports just receiving pain medication. Pain much improved since yesterday. Denies any vomiting today. Reports she feels like she needs to have a BM. (Margret Gupta) Objective Vitals I&O Vital Signs Date Time Temp Pulse Resp B/P (MAP) Pulse Ox O2 Delivery O2 Flow Rate FiO2 11/22/17 04:00 Room Air 11/22/17 04:00 98.5 92 16 120/73 (89) 96 11/21/17 23:40 99.1 88 16 113/66 (82) 94 11/21/17 19:29 99.0 98 20 120/78 (92) 98 11/21/17 19:12 99.1 97 18 122/74 (90) 94 11/21/17 19:00 96 17 124/76 (92) 95 Room Air 11/21/17 18:50 100.0 122 17 130/81 (97) 99 Simple Mask 10 11/21/17 16:00 98.5 90 18 107/74 (85) 97 I/O 11/21/17 11/21/17 11/21/17 11/22/17 11/22/17 11/22/17 07:00 15:00 23:00 07:00 15:00 23:00 Intake Total 2000 ml 300 ml 1800 ml Balance 2000 ml 300 ml 1800 ml Intake Oral 0 ml IV Total 2000 ml 1800 ml Other 300 ml # Voids 1 2 # Bowel Movements 0 Laboratory Laboratory Tests Test 11/21/17 17:55 11/22/17 08:33 11/22/17 10:05 White Blood Count 13.2 Red Blood Count 4.44 Hemoglobin 12.9 Hematocrit 37.7 Mean Corpuscular Volume 85.0 Mean Corpuscular Hemoglobin 29.0 Mean Corpuscular Hemoglobin Concent 34.1 Red Cell Distribution Width 13.3 Platelet Count 282 Mean Platelet Volume 8.1 Neutrophils (%) (Auto) 91.7 Lymphocytes (%) (Auto) 4.5 Monocytes (%) (Auto) 3.7 Eosinophils (%) (Auto) 0.0 Basophils (%) (Auto) 0.1 Neutrophils # (Auto) 12.1 Lymphocytes # (Auto) 0.6 Monocytes # (Auto) 0.5 Eosinophils # (Auto) 0.0 Basophils # (Auto) 0.0 CBC Comment DIFF FINAL Differential Comment Blood Urea Nitrogen 10 10 Creatinine 0.76 0.56 Random Glucose 122 92 Total Protein 7.3 6.2 Albumin 3.3 2.9 Calcium Level 8.1 8.6 Alkaline Phosphatase 219 181 Aspartate Amino Transf (AST/SGOT) 217 113 Alanine Aminotransferase (ALT/SGPT) 524 364 Total Bilirubin 1.8 1.0 0.8 Sodium Level 139 138 Potassium Level 4.1 3.6 Chloride Level 107 107 Carbon Dioxide Level 25.0 23.7 Anion Gap 7 7 Estimat Glomerular Filtration Rate 88 Lipase 25919 6223 Direct Bilirubin 0.4 Date/Time Source Procedure Growth Status 11/21/17 06:15 Urine Clean Catch Urine Culture Pending Received Imaging Last Impressions Abdomen/Pelvis CT 11/21/17 0719 Signed Impressions: Service Date/Time: Tuesday, November 21, 2017 07:30 - CONCLUSION: 1. Diffuse intrahepatic and extra hepatic biliary ductal dilatation. Cholelithiasis. Calcific densities in the region of the distal common duct suggesting choledocholithiasis. No pericholecystic inflammatory changes. 2. Calcified uterine fibroid. 3. 4.5 cm oval cystic area in the right adnexa likely representing an ovarian cyst. Jak Rae MD GI Procedure 11/21/17 0000 Signed Impressions: Service Date/Time: Tuesday, November 21, 2017 18:40 - CONCLUSION: Filling defects in the distal common bile duct. Lázaro Stoddard MD Physical Exam HEENT:Normocephalic; atraumatic CHEST: Even/unlabored CARDIAC: RRR ABDOMEN: Round, soft, mild RUQ tenderness, bowel sounds active EXTREMITIES: No clubbing, cyanosis, or edema. SKIN: Normal; no rash; no jaundice. MATE FISHING VESSEL: No focal deficits; alert and oriented times three. (Margret Gupta [facility]) Assessment and Plan Plan Assessment: - Choledocholithiasis- symptoms of abdominal pain and vomiting intermittent for past six months- history of gallbladder sludge, decided against cholecystectomy in the past. Now has been vomiting and having abdominal pain since last night at 9pm. Labs consistent AST-306 ALT-632 Alk phos-235 T bili-2.1 Lipase- greater than [address]. CT abdomen and pelvis W IV contrast (11/21) --> Diffuse intrahepatic and extra hepatic biliary ductal dilation. Cholelithiasis. Calcified densities in the region of the distal common duct suggesting choledocholithiasis. No pericholecystic inflammatory changes. Calcified uterine fibroid. 4.5cm oval cystic area in the right adnexa likely representing an ovarian cyst. Pt denies ETOH, smoking, illicit drug use, NSAID use, any new medications. S/P ERCP yesterday --> There was impacted stone at the ampulla, cannulation was performed without any difficulty, cholangiogram showed multiple filling defects in the common bile duct, sphincterotomy was performed , sweeping the duct with 11.5 and 15 mm balloon retrieved 3 stones and some sludge, and of case cholangiogram included balloon was negative for any filling defect with good flow of bile from the common bile duct and the ampulla. LFTs improving Currently AST-113 ALT-364 Alk phos-181 Lipase-6223. Improvement in pain and vomiting. Pt is planned for cholecystectomy at 6:00pm this evening, evaluated by Dr. Granados early today. She remains NPO. States she needs to have a BM, has just received 2 Almita-Colace has not had a BM yet. If no relief will reevaluate after surgery, can do Magnesium Citrate. Plan: - Continue Levaquin - Continue PPI - Cholecystectomy today per GS - Continue medication for nausea and pain control - Monitor labs - Will add Mag Citrate if no relief with current bowel regimen - Further recommendations to follow based on results of above Pt has been seen and examined by myself and Dr. Boone and this note is written on his behalf (Margret Gupta) Physician Comments Patient seen and examined Agree with above Continue with current supportive care Monitor labs (Selvin Boone MD) Margret Gupta Nov 22, 2017 14:48 Selvin Boone MD Nov 23, 2017 01:24
[2017-11-22] MEDS ORDERED: RESP: ALBUTEROL 2.5 MG/IPRATROPIUM 0.5 MG NEB (PRN) NEB (15:00)
[2017-11-22] MEDS ORDERED: HYDROmorphone HCL PF 2 MG/ML VIAL ONE (16:09)
[2017-11-22] MEDS ORDERED: fentaNYL CITRATE 250 MCG/5 ML AMP ONE (16:09)
[2017-11-22] MEDS ORDERED: ACETAMINOPHEN 1000 MG/100 ML 100 ML IV ONE (16:09)
[2017-11-22] MEDS ORDERED: BUPIVACAINE/EPINEPHRINE 0.25% PF 30 ML VIAL ONE (16:21)
[2017-11-22] MEDS: LEVOFLOXACIN 500 MG PREMIX INJ 100 ML IV SCH (17:22)
--- NOTE | 2017-11-22 19:13 | HHI.PR ---
cc: Carl Granados MD Immediate Post Op Note Procedure Date: Nov 22, 2017 Pre Op Diagnosis: Choledocholithiasis/gallstone pancreatitis s/p ERCP Post Op Diagnosis: Same Surgeon: Carl Granados Road Roller Operator Hot Mix(s): Faith Pizarro CFA Procedure: Laparoscopic cholecystectomy Complications: None Specimen(s) removed: Gallbladder to pathology Estimated blood loss: 250 ml Anesthesia: General Drains: None IVF (1700 ml) Patient to: PACU Patient Condition: Good Date/Time of Procedure: SEE SURGICAL CARE RECORD Carl Granados MD Nov 22, 2017 19:13
[2017-11-22] MEDS ORDERED: ACETAMINOPHEN/HYDROcodone 325 MG/7.5 MG TAB PO PRN (19:15)
[2017-11-22] MEDS ORDERED: DO NOT ADM ANY ANTICOAGULANT DRUGS PRN (19:30)
[2017-11-22] MEDS: SODIUM CHLORIDE 0.9% FLUSH 10 ML FLUSH IV FLUSH SCH (20:35)
--- NOTE | 2017-11-22 20:43 | MB ---
cc: DIVYA WORKMAN M.D. DATE OF CONSULTATION: 11/22/2017 REASON FOR CONSULTATION: Acute cholecystitis with choledocholithiasis. HISTORY OF PRESENT ILLNESS The patient is a 32-year-old female who has had a 6-month history of intermittent pain and nausea. The patient had a previous diagnosis of biliary sludge and was in the process of getting this evaluated in [facility]. She was recommended to undergo cholecystectomy but declined this. The patient had elevated LFTs and dilatation of the biliary ducts. The patient underwent ERCP on 11/21/2017 with removal of common duct stones and sphincterotomy. PAST MEDICAL HISTORY Includes . MEDICATIONS: She only uses on ibuprofen [id number]. ALLERGIES PENICILLIN. MONTELUKAST WHICH CAUSES BAD DREAMS. FAMILY HISTORY: Hypertension. SOCIAL HISTORY: She does not drink or smoke. PHYSICAL EXAMINATION: Physical exam reveals an obese female who is uncomfortable. Vital signs: BP 113/75, pulse 87, respirations 20, temperature 99.5. HEENT: Sclerae anicteric. Pupils reactive. NECK: Neck is supple. Throat is clear. CHEST: Clear to auscultation without wheezes or rhonchi. CARDIAC: Cardiac exam reveals regular rate and rhythm. ABDOMEN: Soft with some epigastric tenderness with guarding. There is some right upper quadrant tenderness that is less severe but without guarding. Pulses are intact. NEUROLOGIC: Exam is nonfocal. LABORATORY VALUES: Laboratory values demonstrate WBCs of 13.2 with a platelet count of 282,000, hemoglobin is 12.9. Chemistries demonstrate AST 113, ALT 364, alkaline phosphatase 181, total bilirubin is 1.0 down from 2.1 on admission. Lipase is decreased from >30,[address] of the abdomen and pelvis which demonstrates diffuse moderate intrahepatic biliary ductal dilatation with common duct of 11 mm. There are multiple gallstones seen in the gallbladder with two 5 mm calcific densities in the distal common duct. ASSESSMENT Previous choledocholithiasis with gallstone pancreatitis status post ERCP. PLAN: Laparoscopic cholecystectomy, possible intraoperative cholangiogram, possible open cholecystectomy. I have discussed risks of surgery with the patient including but not limited to bleeding, infection, bile duct injury, bowel injury, possible need for postoperative repeat ERCP, drainage, reoperation. I have discussed remedies, consequences, alternatives, and convalescence. She vocalizes understanding and agrees to proceed. MD WINSTON Pelaez /5:02 PM /8:32 PM MTDPaul
[2017-11-23] VITALS (8 sets, daily range): BP systolic 84–130; BP diastolic 64–79; PULSE 97–108; RESP 18–20; TEMP 99–102.4; O2SAT 94–100
[2017-11-23] MEDS: LACTATED RINGER'S 1000 ML INJ 1,000 ML IV SCH ×2 (03:14→19:47)
[2017-11-23] MEDS: PANTOPRAZOLE SODIUM 40 MG VIAL IV PUSH SCH ×2 (03:32→15:38)
[2017-11-23] MEDS: ACETAMINOPHEN/HYDROcodone 325 MG/7.5 MG TAB PO PRN ×2 (03:32→07:37)
--- NOTE | 2017-11-23 09:44 | HHI.PR ---
Subjective Remarks Follow-up acute pancreatitis with choledocholithiasis 11/22/17-patient seen and examined, still complains of abdominal and back pain. Currently nothing by mouth 11/23/17-patient seen and examined, she status post Laparoscopic cholecystectomy 11/22/17, complains of abdominal soreness. Currently afebrile. No significant shortness of breath Objective Vitals Vital Signs Date Time Temp Pulse Resp B/P (MAP) Pulse Ox O2 Delivery O2 Flow Rate FiO2 11/23/17 07:39 99.3 18 84/64 (71) 95 11/23/17 05:45 97 Nasal Cannula 2.00 11/23/17 05:44 90 Room Air 11/23/17 03:15 99.4 108 20 113/79 (90) 94 11/23/17 03:15 94 Room Air 11/23/17 02:26 94 Room Air 11/23/17 02:24 96 Nasal Cannula 2.00 11/23/17 00:00 97 Nasal Cannula 2.00 11/22/17 23:55 90 Room Air 11/22/17 23:40 100 Nasal Cannula 2.00 11/22/17 23:40 99.3 109 20 95/69 (78) 100 11/22/17 20:10 94 Nasal Cannula 2.00 11/22/17 20:10 98.4 100 20 119/73 (88) 94 11/22/17 19:55 98.5 102 19 117/59 (78) 94 Nasal Cannula 2 11/22/17 19:45 104 19 110/53 (72) 94 Nasal Cannula 2 11/22/17 19:30 106 22 101/53 (69) 97 Simple Mask 10 11/22/17 19:20 98.5 110 22 99/49 (66) 96 Simple Mask 10 11/22/17 16:20 99.7 99 20 95 11/22/17 13:30 100.1 95 22 124/74 (91) 96 I/O 11/22/17 11/22/17 11/22/17 11/23/17 11/23/17 11/23/17 07:00 15:00 23:00 07:00 15:00 23:00 Intake Total 1800 ml 3200 ml 1784 ml Output Total 250 ml Balance 1800 ml 2950 ml 1784 ml Intake Oral 0 ml 420 ml IV Total 1800 ml 1500 ml 1364 ml Other 1700 ml Output Estimated Blood Loss 250 ml # Voids 2 3 5 # Bowel Movements 0 0 0 Result Diagram: 11/21/17 1755 11/22/17 0833 Objective Remarks GENERAL: NAD SKIN: Warm and dry. HEAD: Normocephalic. EYES: No scleral icterus. No injection or drainage. NECK: Supple, trachea midline. No JVD or lymphadenopathy. CARDIOVASCULAR: Regular rate and rhythm without murmurs, gallops, or rubs. RESPIRATORY: Breath sounds equal bilaterally. No accessory muscle use. GASTROINTESTINAL: Abdomen soft, mildly tender, nondistended. +BS MUSCULOSKELETAL: No cyanosis, or edema. BACK: Nontender without obvious deformity. No CVA tenderness. Procedures ERCP, sphincterotomy, stones removal by balloon 11/21/17 Laparoscopic cholecystectomy 11/22/17 A/P Problem List: (1) Pancreatitis due to biliary obstruction ICD Code: K85.90 - Acute pancreatitis without necrosis or infection, unspecified; K83.1 - Obstruction of bile duct Status: Acute Assessment and Plan 32-year-old female with Pancreatitis due to biliary obstruction Choledocholithiasis Cholelithiasis s/p ERCP, sphincterotomy, stones removal by balloon 11/21/17 by gastroenterology Lipase trending down, and continue to monitor LFTs and lipase level Currently Clear liquid diet, continue with IV Levaquin, IV fluid resuscitation and parenteral pain management s/p Laparoscopic cholecystectomy 11/22/17 by general surgery DVT prophylaxis: Bilateral SCDs GI prophylaxis: PPI Kristofer Richard MD Nov 23, 2017 09:44
[2017-11-23] MEDS ORDERED: ACETAMINOPHEN 325 MG TAB PO PRN ×2 (10:00→10:45)
[2017-11-23 10:06] LABS: AUTOMATED NEUTROPHIL # 14.5 TH/MM3 (1.8-7.7); BASOPHIL # 0.1 TH/MM3 (0-0.2); BASOPHIL % 0.3 % (0.0-2.0); HEMATOCRIT 31.6 % (35.0-46.0); HEMOGLOBIN 10.6 GM/DL (11.6-15.3); LYMPH % 3.6 % (9.0-44.0); LYMPHOCYTE # 0.6 TH/MM3 (1.0-4.8); MEAN CELL VOLUME 85.4 FL (80.0-100.0); MEAN CORPUSCULAR HEMOGLOBIN 28.6 PG (27.0-34.0); MEAN CORPUSCULAR HGB CONC 33.5 % (32.0-36.0); MEAN PLATELET VOLUME 8.2 FL (7.0-11.0); MONO % 5.4 % (0.0-8.0); MONOCYTE # 0.9 TH/MM3 (0-0.9); NEUT % 90.7 % (16.0-70.0); PLATELET COUNT 183 TH/MM3 (150-450); RED CELL DISTRIBUTION WIDTH 13.3 % (11.6-17.2)
[2017-11-23 10:26] LABS: ALBUMIN 2.5 GM/DL (3.4-5.0); AST (GOT) 114 U/L (15-37); BICARBONATE 25.9 MEQ/L (21.0-32.0); BLOOD UREA NITROGEN 7 MG/DL (7-18); CALCIUM 7.9 MG/DL (8.5-10.1); CHLORIDE 103 MEQ/L (98-107); CREATININE 0.49 MG/DL (0.50-1.00); GLOMERULAR FILTRATION RATE 145 ML/MIN (>89); GLUCOSE,RANDOM 108 MG/DL (74-106); LIPASE 1226 U/L (73-393); SODIUM (NA) 136 MEQ/L (136-145)
[2017-11-23 10:28] LABS: ALT (GPT) 276 U/L (10-53)
[2017-11-23 10:30] LABS: ALKALINE PHOSPHATASE 143 U/L (45-117); TOTAL BILIRUBIN ADULT 0.8 MG/DL (0.2-1.0); TOTAL PROTEIN 5.9 GM/DL (6.4-8.2)
--- NOTE | 2017-11-23 11:01 | HHI.PR ---
Subjective Subjective Notes Resting in bed Still with abdominal discomfort C/o congestion Objective Vitals/I&O Vital Signs Date Time Temp Pulse Resp B/P (MAP) Pulse Ox O2 Delivery O2 Flow Rate FiO2 11/23/17 08:00 95 Room Air 11/23/17 07:39 99.3 18 84/64 (71) 11/23/17 05:45 2.00 11/23/17 03:15 108 Labs Laboratory Tests Test 11/23/17 09:00 White Blood Count 16.0 Red Blood Count 3.70 Hemoglobin 10.6 Hematocrit 31.6 Mean Corpuscular Volume 85.4 Mean Corpuscular Hemoglobin 28.6 Mean Corpuscular Hemoglobin Concent 33.5 Red Cell Distribution Width 13.3 Platelet Count 183 Mean Platelet Volume 8.2 Neutrophils (%) (Auto) 90.7 Lymphocytes (%) (Auto) 3.6 Monocytes (%) (Auto) 5.4 Eosinophils (%) (Auto) 0.0 Basophils (%) (Auto) 0.3 Neutrophils # (Auto) 14.5 Lymphocytes # (Auto) 0.6 Monocytes # (Auto) 0.9 Eosinophils # (Auto) 0.0 Basophils # (Auto) 0.1 CBC Comment DIFF FINAL Differential Comment Blood Urea Nitrogen 7 Creatinine 0.49 Random Glucose 108 Total Protein 5.9 Albumin 2.5 Calcium Level 7.9 Alkaline Phosphatase 143 Aspartate Amino Transf (AST/SGOT) 114 Alanine Aminotransferase (ALT/SGPT) 276 Total Bilirubin 0.8 Sodium Level 136 Potassium Level 3.4 Chloride Level 103 Carbon Dioxide Level 25.9 Anion Gap 7 Estimat Glomerular Filtration Rate 145 Lipase 1226 Date/Time Source Procedure Growth Status 11/21/17 06:15 Urine Clean Catch Urine Culture - Final 50-100,000 CFU/ML MIXED GRAM POSITIVE... Complete Cardiovascular: Regular Lungs: Clear Abdomen: Other (lap sites c/d/i ), Post-op tenderness Extremities: No edema A/P Assessment and Plan 32 year old female POD1 lap maya for Choledocholithiasis/gallstone pancreatitis s/p ERCP -Continue clear liquids for now -Continue IVF -CXR today -Mucinex scheduled -Continue Levaquin; added Flagyl -Reviewed labs -OOB and mobilize as tolerated -IS -Will continue to follow Attending Note - Dr. Darwin Bauman-strips with old dried drainage at umbilicus Still painful in the epigastrium; lipase down to 1226 Not ready to advance diet yet Still needs IV pain meds Possible discharge tomorrow if pain better AND tolerating diet The exam, history, and the medical decision-making described in the above note were completed with the assistance of the mid-level provider. I reviewed and agree with the findings presented. I attest that I had a [id number] encounter with the patient on the same day, and personally performed and documented my assessment and findings in the medical record. Shazia Salinas Nov 23, 2017 11:01 Carl Granados MD Nov 23, 2017 20:00
[2017-11-23] MEDS: metroNIDAZOLE 500 MG INJ 100 ML IV SCH ×2 (11:30→20:05)
--- NOTE | 2017-11-23 11:54 | RADRPT ---
EXAM DATE/TIME: 11/23/2017 11:15 [place] COMPARISON: CT ABDOMEN & PELVIS W CONTRAST, November 21, 2017, 7:30. INDICATIONS : Short of breath since this morning. MEDICAL HISTORY : None. SURGICAL HISTORY : section. ENCOUNTER: Subsequent ACUITY: 2 days PAIN SCORE: 0/10 LOCATION: Bilateral chest FINDINGS: Portable AP view of the chest demonstrates a normal-sized cardiac silhouette. No effusion, consolidat ion, or pneumothorax is visualized. The bones and soft tissues demonstrate no acute abnormality. Ther e is mild atelectasis at the lung bases. CONCLUSION: No acute cardiopulmonary abnormality is identified. Lázaro Owen MD on November 23, 2017 at 11:50 Board Certified Radiologist. This report was verified electronically.
[2017-11-23] MEDS: guaiFENesin E.R. 600 MG TAB PO SCH ×2 (12:40→21:00)
--- NOTE | 2017-11-23 14:29 | MP ---
cc: CARL GRANADOS M.D. DATE OF SURGERY 11/22/2017 PROCEDURE Laparoscopic cholecystectomy PREOPERATIVE DIAGNOSIS Gallstone pancreatitis with choledocholithiasis status post ERCP. ANESTHESIA General endotracheal SURGEON Carl Granados MD ESTIMATED BLOOD LOSS 250 mL FLUIDS 1700 mL crystalloid COMPLICATIONS None DRAINS None SPECIMEN Gallbladder to pathology. PROCEDURE IN DETAIL The patient was taken to the operating room and placed on the operating table in the supine position. After an adequate level of general endotracheal anesthesia was achieved, the abdomen was prepped and draped in the usual fashion. Time-out was taken confirming the correct patient, site, and procedure to be performed. Incision was made above the umbilicus and carried down through the fascia sharply. The peritoneal cavity was directly visualized. A 12 mm balloon trocar was inserted and the balloon inflated. The abdomen was insufflated. The patient was placed in reverse Trendelenburg position. Three 5 mm trocars were placed with the first to the right of the falciform ligament, second and third in the right subcostal region. All entered the abdominal cavity under direct vision uneventfully. The gallbladder was then grasped and retracted upward. Omental adhesions were taken down off of the liver to allow for easier retraction. The gallbladder appeared to be intrahepatic and along most of its course and this made the procedure more difficult. The cystic artery was circumferentially dissected, doubly clipped proximally, singly clipped on the gallbladder side and divided. This was coursing anteriorly across the cystic duct. The cystic duct was circumferentially dissected, but was somewhat larger than normal. There is significant concern about the location and while the common duct was able to be visualized, given the intrahepatic location of the gallbladder, a dome down approach was employed. The gallbladder was dissected laterally on both sides out of the liver bed and then from the fundus downward, the cautery was utilized to dissect the gallbladder off of the liver bed. A bleeding point on the upper portion of the liver bed was not easily controlled with electrocautery and a small piece of [place] clotting agent was brought up and placed into the liver bed. This was held for three minutes and provided absolute hemostasis. The gallbladder was then completely dissected off of the liver bed and two small cystic artery branches were singly clipped and then divided. This allowed for complete separation of the gallbladder off of the liver bed and at this point, a 0-PDS Endoloop was brought over the gallbladder and cinched down on the cystic duct which was somewhat dilated. The cystic duct was divided on the gallbladder side and the gallbladder placed into an EndoCatch device and removed via the umbilical port while observing via the upper 5 mm trocar site. The liver bed was examined and a second piece of [place] was placed after irrigating and with complete hemostasis assured. The cystic artery stump was revisualized and seen to be clean and dry. The liver bed was now clean and dry. Insufflation was discontinued after aspirating all irrigation. The upper abdominal trocars were removed under direct vision. No bleeding was noted from the trocar sites during desufflation. The laparoscope and supraumbilical port were removed. The fascia was closed in the supraumbilical site with 0 Vicryl suture in a simple interrupted fashion. The skin was closed at each of the 5-mm trocar sites with 4-0 Vicryl in an interrupted buried fashion and also in the umbilicus. An incision was made in the skin and the umbilicus, but was not carried through to the fascia as this was felt to be too low and would have created difficulty with the camera. Thus this was closed simply with 4-0 Vicryl sutures. The supraumbilical site was closed with a running 4-0 Vicryl suture. All sites were dressed with Steri-Strips. The patient was extubated and taken back to the recovery room in stable condition. She tolerated the procedure well. MD KAYCE Pelaez/NISSA /7:12 PM /10:02 AM RADHA
[2017-11-23] MEDS: LEVOFLOXACIN 500 MG PREMIX INJ 100 ML IV SCH (15:39)
--- NOTE | 2017-11-23 16:01 | HHI.GIFU ---
Subjective Remarks Pt walking around the room with IV pole. States feeling better today, would like something not as strong for pain control. Still has not had a BM feels like she needs to have one. (Margret Gupta) Objective Vitals I&O Vital Signs Date Time Temp Pulse Resp B/P (MAP) Pulse Ox O2 Delivery O2 Flow Rate FiO2 11/23/17 11:25 101.1 103 18 121/75 (90) 98 11/23/17 08:00 95 Room Air 11/23/17 07:39 99.3 18 84/64 (71) 95 11/23/17 05:45 97 Nasal Cannula 2.00 11/23/17 05:44 90 Room Air 11/23/17 03:15 99.4 108 20 113/79 (90) 94 11/23/17 03:15 94 Room Air 11/23/17 02:26 94 Room Air 11/23/17 02:24 96 Nasal Cannula 2.00 11/23/17 00:00 97 Nasal Cannula 2.00 11/22/17 23:55 90 Room Air 11/22/17 23:40 100 Nasal Cannula 2.00 11/22/17 23:40 99.3 109 20 95/69 (78) 100 11/22/17 20:10 94 Nasal Cannula 2.00 11/22/17 20:10 98.4 100 20 119/73 (88) 94 11/22/17 19:55 98.5 102 19 117/59 (78) 94 Nasal Cannula 2 11/22/17 19:45 104 19 110/53 (72) 94 Nasal Cannula 2 11/22/17 19:30 106 22 101/53 (69) 97 Simple Mask 10 11/22/17 19:20 98.5 110 22 99/49 (66) 96 Simple Mask 10 11/22/17 16:20 99.7 99 20 95 I/O 11/22/17 11/22/17 11/22/17 11/23/17 11/23/17 11/23/17 07:00 15:00 23:00 07:00 15:00 23:00 Intake Total 1800 ml 3200 ml 1784 ml Output Total 250 ml Balance 1800 ml 2950 ml 1784 ml Intake Oral 0 ml 420 ml IV Total 1800 ml 1500 ml 1364 ml Other 1700 ml Output Estimated Blood Loss 250 ml # Voids 2 3 5 # Bowel Movements 0 0 0 Laboratory Laboratory Tests Test 11/23/17 09:00 White Blood Count 16.0 Red Blood Count 3.70 Hemoglobin 10.6 Hematocrit 31.6 Mean Corpuscular Volume 85.4 Mean Corpuscular Hemoglobin 28.6 Mean Corpuscular Hemoglobin Concent 33.5 Red Cell Distribution Width 13.3 Platelet Count 183 Mean Platelet Volume 8.2 Neutrophils (%) (Auto) 90.7 Lymphocytes (%) (Auto) 3.6 Monocytes (%) (Auto) 5.4 Eosinophils (%) (Auto) 0.0 Basophils (%) (Auto) 0.3 Neutrophils # (Auto) 14.5 Lymphocytes # (Auto) 0.6 Monocytes # (Auto) 0.9 Eosinophils # (Auto) 0.0 Basophils # (Auto) 0.1 CBC Comment DIFF FINAL Differential Comment Blood Urea Nitrogen 7 Creatinine 0.49 Random Glucose 108 Total Protein 5.9 Albumin 2.5 Calcium Level 7.9 Alkaline Phosphatase 143 Aspartate Amino Transf (AST/SGOT) 114 Alanine Aminotransferase (ALT/SGPT) 276 Total Bilirubin 0.8 Sodium Level 136 Potassium Level 3.4 Chloride Level 103 Carbon Dioxide Level 25.9 Anion Gap 7 Estimat Glomerular Filtration Rate 145 Lipase 1226 Date/Time Source Procedure Growth Status 11/21/17 06:15 Urine Clean Catch Urine Culture - Final 50-100,000 CFU/ML MIXED GRAM POSITIVE... Complete Imaging Last Impressions Chest X-Ray 11/23/17 0000 Signed Impressions: Service Date/Time: Thursday, November 23, 2017 11:15 - CONCLUSION: No acute cardiopulmonary abnormality is identified. Lázaro Owen MD Abdomen/Pelvis CT 11/21/17 0719 Signed Impressions: Service Date/Time: Tuesday, November 21, 2017 07:30 - CONCLUSION: 1. Diffuse intrahepatic and extra hepatic biliary ductal dilatation. Cholelithiasis. Calcific densities in the region of the distal common duct suggesting choledocholithiasis. No pericholecystic inflammatory changes. 2. Calcified uterine fibroid. 3. 4.5 cm oval cystic area in the right adnexa likely representing an ovarian cyst. Jak Rae MD GI Procedure 11/21/17 0000 Signed Impressions: Service Date/Time: Tuesday, November 21, 2017 18:40 - CONCLUSION: Filling defects in the distal common bile duct. Lázaro Stoddard MD Physical Exam HEENT:Normocephalic; atraumatic CHEST: Even/unlabored CARDIAC: RRR ABDOMEN: Round, soft, bowel sounds active EXTREMITIES: No clubbing, cyanosis, or edema. SKIN: Normal; no rash; no jaundice. POWERTRAIN DESIGN ENGINEER: No focal deficits; alert and oriented times three. (Margret Gupta PUBLIC EMPLOYMENT MEDIATOR) Assessment and Plan Plan Assessment: - Choledocholithiasis- symptoms of abdominal pain and vomiting intermittent for past six months- history of gallbladder sludge, decided against cholecystectomy in the past. Now has been vomiting and having abdominal pain since last night at 9pm. Labs consistent AST-306 ALT-632 Alk phos-235 T bili-2.1 Lipase- [place] [address]. CT abdomen and pelvis W IV contrast (11/21) --> Diffuse intrahepatic and extra hepatic biliary ductal dilation. Cholelithiasis. Calcified densities in the region of the distal common duct suggesting choledocholithiasis. No pericholecystic inflammatory changes. Calcified uterine fibroid. 4.5cm oval cystic area in the right adnexa likely representing an ovarian cyst. Pt denies ETOH, smoking, illicit drug use, NSAID use, any new medications. S/P ERCP yesterday --> There was impacted stone at the ampulla, cannulation was performed without any difficulty, cholangiogram showed multiple filling defects in the common bile duct, sphincterotomy was performed , sweeping the duct with 11.5 and 15 mm balloon retrieved 3 stones and some sludge, and of case cholangiogram included balloon was negative for any filling defect with good flow of bile from the common bile duct and the ampulla. LFTs improving Currently AST-113 ALT-364 Alk phos-181 Lipase-6223. Improvement in pain and vomiting. Pt is planned for cholecystectomy at 6:00pm this evening, evaluated by Dr. Granados early today. She remains NPO. States she needs to have a BM, has just received 2 Almita-Colace has not had a BM yet. If no relief will reevaluate after surgery, can do Magnesium Citrate. (11/23) S/P cholecystectomy yesterday. Complaining of some abdominal soreness. Lipase continues to improve, now 1226. Mild improvement in LFTs since yesterday. Currently AST-114 ALT-276 Alk phos-143 T bili 0.8. Still on Levaquin and Flagyl. Plan: - Continue Levaquin - Continue PPI - Continue medication for nausea and pain control - Monitor labs - Will add Mag Citrate - Further recommendations to follow based on results of above Pt has been seen and examined by myself and Dr. Boone and this note is written on his behalf (Margret Gupta) Physician Comments Patient seen and examined Agree with above Continue with current supportive care Monitor labs We will defer to the surgical service for further management Not much to add from a GI perspective we will sign off (Selvin oBone MD) Margret Gupta Nov 23, 2017 16:01 Selvin Boone MD Nov 23, 2017 22:20
[2017-11-23] MEDS ORDERED: MAGNESIUM CITRATE SOLN 300 ML BTL PO ONE (16:15)
[2017-11-23] MEDS: SODIUM CHLORIDE 0.9% FLUSH 10 ML FLUSH IV FLUSH SCH (21:00)
[2017-11-24 01:43] VITALS: TEMP 98.9
[2017-11-24 03:45] VITALS: BP 136/84; PULSE 98; RESP 20; TEMP 99.7; O2SAT 95
[2017-11-24] MEDS: LACTATED RINGER'S 1000 ML INJ 1,000 ML IV SCH (03:46)
[2017-11-24] MEDS: metroNIDAZOLE 500 MG INJ 100 ML IV SCH ×2 (03:46→11:35)
[2017-11-24] MEDS: PANTOPRAZOLE SODIUM 40 MG VIAL IV PUSH SCH (03:47)
[2017-11-24 07:29] VITALS: BP 128/69; PULSE 102; RESP 22; TEMP 100.1; O2SAT 95
[2017-11-24] MEDS: guaiFENesin E.R. 600 MG TAB PO SCH (08:29)
[2017-11-24] MEDS: SODIUM CHLORIDE 0.9% FLUSH 10 ML FLUSH IV FLUSH SCH (08:30)
[2017-11-24 10:29] LABS: ALBUMIN 2.6 GM/DL (3.4-5.0); AST (GOT) 57 U/L (15-37); BICARBONATE 27.6 MEQ/L (21.0-32.0); BLOOD UREA NITROGEN 4 MG/DL (7-18); CALCIUM 8.1 MG/DL (8.5-10.1); CHLORIDE 102 MEQ/L (98-107); CREATININE 0.62 MG/DL (0.50-1.00); GLOMERULAR FILTRATION RATE 111 ML/MIN (>89); GLUCOSE,RANDOM 106 MG/DL (74-106); LIPASE 417 U/L (73-393); SODIUM (NA) 138 MEQ/L (136-145)
[2017-11-24 10:30] LABS: ALT (GPT) 211 U/L (10-53)
[2017-11-24 10:33] LABS: ALKALINE PHOSPHATASE 129 U/L (45-117); TOTAL BILIRUBIN ADULT 0.8 MG/DL (0.2-1.0); TOTAL PROTEIN 6.6 GM/DL (6.4-8.2)
[2017-11-24] MEDS ORDERED: HYDR-3288 PO (10:37)
[2017-11-24] MEDS ORDERED: CIPR-9 PO (10:43)
--- NOTE | 2017-11-24 10:43 | HHI.PR ---
Subjective Subjective Notes Patient reports pain much better today; resolved Objective Vitals/I&O Vital Signs Date Time Temp Pulse Resp B/P (MAP) Pulse Ox O2 Delivery O2 Flow Rate FiO2 11/24/17 07:30 95 Room Air 11/24/17 07:29 100.1 102 22 128/69 (88) 11/23/17 19:45 2.00 Labs Laboratory Tests Test 11/24/17 09:13 Blood Urea Nitrogen 4 Creatinine 0.62 Random Glucose 106 Total Protein 6.6 Albumin 2.6 Calcium Level 8.1 Alkaline Phosphatase 129 Aspartate Amino Transf (AST/SGOT) 57 Alanine Aminotransferase (ALT/SGPT) 211 Total Bilirubin 0.8 Sodium Level 138 Potassium Level 3.0 Chloride Level 102 Carbon Dioxide Level 27.6 Anion Gap 8 Estimat Glomerular Filtration Rate 111 Lipase 417 Date/Time Source Procedure Growth Status 11/21/17 06:15 Urine Clean Catch Urine Culture - Final 50-100,000 CFU/ML MIXED GRAM POSITIVE... Complete Abdomen: Non-distended, Non-tender A/P Assessment and Plan 32 year old female POD2 lap maya for Choledocholithiasis/gallstone pancreatitis s/p ERCP Lipase down to 447 Diet advanced Ok for discharge today Follow up my office tomorrow Carl Granados MD Nov 24, 2017 10:43
[2017-11-24 11:33] VITALS: PULSE 106; RESP 22; TEMP 100.1; O2SAT 96
[2017-11-24] MEDS ORDERED: POTASSIUM CHLORIDE 20 MEQ CONTROLLED RELEASE TAB PO ONE (12:00)
[2017-11-24] MEDS ORDERED: POTASSIUM CHLOR 20 MEQ PREMIX 100 ML IV ONE (12:00)
--- NOTE | 2017-11-24 12:54 | HHI.PR ---
Subjective Remarks Follow-up acute pancreatitis with choledocholithiasis 11/22/17-patient seen and examined, still complains of abdominal and back pain. Currently nothing by mouth 11/23/17-patient seen and examined, she status post Laparoscopic cholecystectomy 11/22/17, complains of abdominal soreness. Currently afebrile. No significant shortness of breath 11/24/17-patient seen and examined, spiking fever however reports improvement of abdominal pain. Bowel movement 2. Patient states she did ambulate overnight. No other issue she is looking for discharge home Objective Vitals Vital Signs Date Time Temp Pulse Resp B/P (MAP) Pulse Ox O2 Delivery O2 Flow Rate FiO2 11/24/17 11:33 100.1 106 22 96 11/24/17 07:30 95 Room Air 11/24/17 07:29 100.1 102 22 128/69 (88) 95 11/24/17 03:45 95 Room Air 11/24/17 03:45 99.7 98 20 136/84 (101) 95 11/24/17 01:43 98.9 11/23/17 23:40 102.4 100 20 130/74 (92) 95 11/23/17 23:40 95 Room Air 11/23/17 21:10 99.9 11/23/17 19:45 100.1 97 20 115/69 (84) 99 11/23/17 19:45 99 Nasal Cannula 2.00 11/23/17 18:30 101.7 11/23/17 16:08 99.0 105 20 121/74 (90) 100 I/O 11/23/17 11/23/17 11/23/17 11/24/17 11/24/17 11/24/17 07:00 15:00 23:00 07:00 15:00 23:00 Intake Total 1784 ml 3417 ml 300 ml Balance 1784 ml 3417 ml 300 ml Intake Oral 420 ml 1150 ml 300 ml IV Total 1364 ml 2267 ml # Voids 5 10 1 # Bowel Movements 0 1 Result Diagram: 11/23/17 0900 11/24/17 0913 Imaging Last Impressions Chest X-Ray 11/23/17 0000 Signed Impressions: Service Date/Time: Thursday, November 23, 2017 11:15 - CONCLUSION: No acute cardiopulmonary abnormality is identified. Lázaro Owen MD Abdomen/Pelvis CT 11/21/17 0719 Signed Impressions: Service Date/Time: Tuesday, November 21, 2017 07:30 - CONCLUSION: 1. Diffuse intrahepatic and extra hepatic biliary ductal dilatation. Cholelithiasis. Calcific densities in the region of the distal common duct suggesting choledocholithiasis. No pericholecystic inflammatory changes. 2. Calcified uterine fibroid. 3. 4.5 cm oval cystic area in the right adnexa likely representing an ovarian cyst. Jak Rae MD GI Procedure 11/21/17 0000 Signed Impressions: Service Date/Time: Tuesday, November 21, 2017 18:40 - CONCLUSION: Filling defects in the distal common bile duct. Lázaro Stoddard MD Objective Remarks GENERAL: NAD SKIN: Warm and dry. HEAD: Normocephalic. EYES: No scleral icterus. No injection or drainage. NECK: Supple, trachea midline. No JVD or lymphadenopathy. CARDIOVASCULAR: Regular rate and rhythm without murmurs, gallops, or rubs. RESPIRATORY: Breath sounds equal bilaterally. No accessory muscle use. GASTROINTESTINAL: Abdomen soft, mildly tender, nondistended. +BS MUSCULOSKELETAL: No cyanosis, or edema. BACK: Nontender without obvious deformity. No CVA tenderness. Procedures ERCP, sphincterotomy, stones removal by balloon 11/21/17 Laparoscopic cholecystectomy 11/22/17 A/P Problem List: (1) Pancreatitis due to biliary obstruction ICD Code: K85.90 - Acute pancreatitis without necrosis or infection, unspecified; K83.1 - Obstruction of bile duct Status: Acute Assessment and Plan 32-year-old female with Pancreatitis due to biliary obstruction Choledocholithiasis Cholelithiasis s/p ERCP, sphincterotomy, stones removal by balloon 11/21/17 by gastroenterology Lipase trending down to 440, and continue to monitor LFTs and lipase level Currently ADAT, continue with IV Levaquin and Flagyl, IV fluid resuscitation and parenteral pain management s/p Laparoscopic cholecystectomy 11/22/17 by general surgery Postop fever Encourage incentive spirometry use DVT prophylaxis: Bilateral SCDs GI prophylaxis: PPI Kristofer Richard MD Nov 24, 2017 12:53
--- NOTE | 2017-11-24 12:56 | HHI.DS ---
Discharge Summary Admission Date Nov 21, 2017 at 08:54 Discharge Date: Nov 24, 2017 Admitting Diagnosis Choledocholithiasis/acute pancreatitis (1) Pancreatitis due to biliary obstruction ICD Code: K85.90 - Acute pancreatitis without necrosis or infection, unspecified; K83.1 - Obstruction of bile duct Status: Acute Procedures ERCP, sphincterotomy, stones removal by balloon 11/21/17 Laparoscopic cholecystectomy 11/22/17 Brief History - From Admission Patient is a 32-year-old female with minimal past history who has about 6 months of intermittent abdominal pain and associated nausea. She denies alcohol. She does have a previous diagnosis of biliary sludge and had been in the process of getting this evaluated in [place]. She was recommended for cholecystectomy but declined this in the couple of his hospital for nausea and vomiting with abdominal discomfort. The pain in her abdomen is severe and improved with minimal no improvement with Dilaudid or morphine. The patient has elevated LFTs and on imaging there is dilation her biliary ducts of likely obstruction. Patient will need to be admitted to the hospital for pain control and for definitive treatment of her biliary disease. CBC/BMP: 11/23/17 0900 11/24/17 0913 Significant Findings Laboratory Tests Test 11/21/17 17:55 11/22/17 08:33 11/22/17 10:05 11/23/17 09:00 White Blood Count 13.2 TH/MM3 (4.0-11.0) 16.0 TH/MM3 (4.0-11.0) Neutrophils (%) (Auto) 91.7 % (16.0-70.0) 90.7 % (16.0-70.0) Lymphocytes (%) (Auto) 4.5 % (9.0-44.0) 3.6 % (9.0-44.0) Neutrophils # (Auto) 12.1 TH/MM3 (1.8-7.7) 14.5 TH/MM3 (1.8-7.7) Lymphocytes # (Auto) 0.6 TH/MM3 (1.0-4.8) 0.6 TH/MM3 (1.0-4.8) Random Glucose 122 MG/DL (74-106) 108 MG/DL (74-106) Albumin 3.3 GM/DL (3.4-5.0) 2.9 GM/DL (3.4-5.0) 2.5 GM/DL (3.4-5.0) Calcium Level 8.1 MG/DL (8.5-10.1) 7.9 MG/DL (8.5-10.1) Alkaline Phosphatase 219 U/L (45-117) 181 U/L (45-117) 143 U/L (45-117) Aspartate Amino Transf (AST/SGOT) 217 U/L (15-37) 113 U/L (15-37) 114 U/L (15-37) Alanine Aminotransferase (ALT/SGPT) 524 U/L (10-53) 364 U/L (10-53) 276 U/L (10-53) Total Bilirubin 1.8 MG/DL (0.2-1.0) Estimat Glomerular Filtration Rate 88 ML/MIN (>89) Lipase 06561 U/L (73-393) 6223 U/L (73-393) 1226 U/L (73-393) Total Protein 6.2 GM/DL (6.4-8.2) 5.9 GM/DL (6.4-8.2) Direct Bilirubin 0.4 MG/DL (0.0-0.2) Red Blood Count 3.70 MIL/MM3 (4.00-5.30) Hemoglobin 10.6 GM/DL (11.6-15.3) Hematocrit 31.6 % (35.0-46.0) Creatinine 0.49 MG/DL (0.50-1.00) Potassium Level 3.4 MEQ/L (3.5-5.1) Test 11/24/17 09:13 Blood Urea Nitrogen 4 MG/DL (7-18) Albumin 2.6 GM/DL (3.4-5.0) Calcium Level 8.1 MG/DL (8.5-10.1) Alkaline Phosphatase 129 U/L (45-117) Aspartate Amino Transf (AST/SGOT) 57 U/L (15-37) Alanine Aminotransferase (ALT/SGPT) 211 U/L (10-53) Potassium Level 3.0 MEQ/L (3.5-5.1) Lipase 417 U/L (73-393) Imaging Last Impressions Chest X-Ray 11/23/17 0000 Signed Impressions: Service Date/Time: Thursday, November 23, 2017 11:15 - CONCLUSION: No acute cardiopulmonary abnormality is identified. Lázaro Owen MD Abdomen/Pelvis CT 11/21/17 0719 Signed Impressions: Service Date/Time: Tuesday, November 21, 2017 07:30 - CONCLUSION: 1. Diffuse intrahepatic and extra hepatic biliary ductal dilatation. Cholelithiasis. Calcific densities in the region of the distal common duct suggesting choledocholithiasis. No pericholecystic inflammatory changes. 2. Calcified uterine fibroid. 3. 4.5 cm oval cystic area in the right adnexa likely representing an ovarian cyst. Jak Rae MD GI Procedure 11/21/17 0000 Signed Impressions: Service Date/Time: Tuesday, November 21, 2017 18:40 - CONCLUSION: Filling defects in the distal common bile duct. Lázaro Stoddard MD PE at Discharge GENERAL: NAD SKIN: Warm and dry. HEAD: Normocephalic. EYES: No scleral icterus. No injection or drainage. NECK: Supple, trachea midline. No JVD or lymphadenopathy. CARDIOVASCULAR: Regular rate and rhythm without murmurs, gallops, or rubs. RESPIRATORY: Breath sounds equal bilaterally. No accessory muscle use. GASTROINTESTINAL: Abdomen soft, mildly tender, nondistended. +BS MUSCULOSKELETAL: No cyanosis, or edema. BACK: Nontender without obvious deformity. No CVA tenderness. Hospital Course While in hospital, patient was treated for: Pancreatitis due to biliary obstruction Choledocholithiasis Cholelithiasis s/p ERCP, sphincterotomy, stones removal by balloon 11/21/17 by gastroenterology Lipase trending down to 417, and continue to monitor LFTs and lipase level Treated with IV Levaquin and Flagyl, IV fluid resuscitation and parenteral pain management; patient would be discharge discharged home on Cipro s/p Laparoscopic cholecystectomy 11/22/17 by general surgery Postop fever Encourage incentive spirometry use DVT prophylaxis: Bilateral SCDs GI prophylaxis: PPI Pt Condition on Discharge: Stable Discharge Disposition: Discharge Home Discharge Time: <= 30 minutes Discharge Instructions DIET: Follow Instructions for: As Tolerated, No Restrictions Activities you can perform: Regular-No Restrictions Follow up Referrals: Appointment for Follow Up PCP Follow-up - 1 Week New Medications: Ciprofloxacin (Cipro) 500 Mg Tab 500 MG PO BID for Infection, #14 TAB 0 Refills Hydrocodone-Acetaminophen ([place]) 7.5-325 mg Tab 1-2 TAB PO Q4H PRN for PAIN, #30 TAB 0 Refills Discontinued Medications: Ibuprofen (Ibuprofen) 200 Mg Tab 200 MG PO Q4H PRN for PAIN 1 TO 10 AND/OR AGITATION, TAB 0 Refills Kristofer Richard MD Nov 24, 2017 12:56
[2017-11-24] MEDS: LEVOFLOXACIN 500 MG PREMIX INJ 100 ML IV SCH (14:59)
[2017-11-24 15:33] LABS: AUTOMATED NEUTROPHIL # 13.2 TH/MM3 (1.8-7.7); BASOPHIL % 0.2 % (0.0-2.0); EOSINOPHIL % 0.1 % (0.0-4.0); HEMATOCRIT 30.5 % (35.0-46.0); HEMOGLOBIN 10.3 GM/DL (11.6-15.3); LYMPH % 5.3 % (9.0-44.0); LYMPHOCYTE # 0.8 TH/MM3 (1.0-4.8); MEAN CELL VOLUME 84.8 FL (80.0-100.0); MEAN CORPUSCULAR HEMOGLOBIN 28.8 PG (27.0-34.0); MEAN CORPUSCULAR HGB CONC 33.9 % (32.0-36.0); MEAN PLATELET VOLUME 8.2 FL (7.0-11.0); MONO % 5.7 % (0.0-8.0); MONOCYTE # 0.9 TH/MM3 (0-0.9); NEUT % 88.7 % (16.0-70.0); PLATELET COUNT 209 TH/MM3 (150-450); RED BLOOD COUNT 3.59 MIL/MM3 (4.00-5.30); RED CELL DISTRIBUTION WIDTH 13.3 % (11.6-17.2); WHITE BLOOD COUNT 14.9 TH/MM3 (4.0-11.0)
== END 2017-11-24 16:54 | disposition home or self-care (01) | DRG 418 ==
LOC: PHED 05:33 → PHEDA 08:54 → H6YA 14:46
PROVIDERS: ADMIT Hospitalist; ATTEND Hospitalist
PROC: 0FC98ZZ Extirpation of Matter from Common Bile Duct, Via Natural or Artificial Opening Endoscopic (ICD-10-PCS; 2017-11-21)
PROC: 0FT44ZZ Resection of Gallbladder, Percutaneous Endoscopic Approach (ICD-10-PCS; principal; 2017-11-22 17:05)
DX: K85.10 Biliary acute pancreatitis without necrosis or infection (principal); K80.63 Calculus of gallbladder and bile duct with acute cholecystitis with obstruction; K59.09 Other constipation; D25.9 Leiomyoma of uterus, unspecified; N83.201 Unspecified ovarian cyst, right side; R50.82 Postprocedural fever; G89.29 Other chronic pain
CPT/HCPCS: 71045; 74177; 74330; 80053; 81001; 82247; 82248; 83690; 84702; 85025; 87086; 88304; 94664; 96361; 96374; 96375; 96376; C1769; C9113; J0131; J0330; J0780; J1100; J1170; J1885; J1956; J2250; J2270; J2405; J2710; J3010; J3480; J7030; J7120; Q9967